=== PATIENT | male | born 1960 | race Caucasian/White ===

== ENCOUNTER 2016-12-29 09:18 | Day surgery (SDC) | payer OTHER ==
[~2016-12-29 09:18] MED LIST: ACCUTES; ALBU.5I NEB; ALPR0.25 PO; ASPI81CH CHEW; CHLO.12%30 SWISH-SPIT; FAMO20TA2 PO; GLUCINJ IM; HUMALOG SQ; LANTUS2P SQ; METO25TA3 PO; MIRA33504 PO; NORC5TAB PO; POTA-245 PO; QUET5TAB PO
--- NOTE | 2016-12-29 10:04 | RADRPT ---
EXAM DATE/TIME: 12/29/2016 00:00 [facility] COMPARISON: No previous studies available for comparison. INDICATIONS : Left pleural effusion. MEDICAL HISTORY : Hypertension. Hypercholesterolemia. SURGICAL HISTORY : CABG Pacemaker. Total knee replacement, right. Valve replacement. Hernia repair. ENCOUNTER: Initial ACUITY: 1 day PAIN SCORE: 8/10 LOCATION: Left chest FLUID: Total volume of 1000 cc of clear, yellow fluid was removed. Fluid was sent to lab for ordered studies. TECHNIQUE: 1. Ultrasound guidance for thoracentesis. 2. Thoracentesis. The risks, benefits, and alternatives to ultrasound guided thoracentesis were explained to the patien t in lay simple terms, including the risk of bleeding and infection. Written and verbal informed con sent was obtained. Appropriate area for thoracentesis was marked under ultrasound guidance with the patient in the uprig ht position. Overlying skin was prepped and draped in the usual sterile fashion and with local anest hetic, a dermatotomy was made with an 11 blade scalpel. A 6 Macedonian thoracentesis catheter was placed in the pleural space and fluid was removed. Catheter was then removed and a sterile dressing applie d. There were no immediate complications. The patient tolerated the procedure well and the left the ultrasound suite in stable condition. Chest radiograph is to be obtained. CONCLUSION: Uncomplicated ultrasound guided thoracentesis. Lance Griffith MD FACR on December 29, 2016 at 10:02 Board Certified Radiologist. This report was verified electronically.
--- NOTE | 2016-12-29 15:55 | RADRPT ---
EXAM DATE/TIME: 12/29/2016 08:59 [facility] COMPARISON: No previous studies available for comparison. INDICATIONS : Evaluate for pneumothorax. MEDICAL HISTORY : Myocardial infarction. SURGICAL HISTORY : CABG. Pacemaker. ENCOUNTER: Initial ACUITY: 3 days PAIN SCORE: 0/10 LOCATION: Bilateral chest FINDINGS: A single portable frontal view of the chest is limited by the portable nature of the exam in conjunct ion with the patient's body habitus. Heart is enlarged. Bilateral pleural effusions with bibasilar in filtrates. No discernible pneumothorax. Left-sided pacing device. Median sternotomy wires. CONCLUSION: 1. No appreciable pneumothorax. 2. Cardiomegaly with bilateral pleural effusions and bibasilar infiltrates. Garett Velasquez Jr., MD on December 29, 2016 at 9:32 Board Certified Radiologist. This report was verified electronically.
== END 2016-12-29 10:29 ==
LOC: HRAD 09:18
PROVIDERS: ATTEND Physical Medicine & Rehabilitation
DX: J90 Pleural effusion, not elsewhere classified (principal); I25.2 Old myocardial infarction; I51.7 Cardiomegaly; E78.00 Pure hypercholesterolemia, unspecified; I10 Essential (primary) hypertension; Z95.1 Presence of aortocoronary bypass graft; Z95.0 Presence of cardiac pacemaker; Z96.651 Presence of right artificial knee joint; Z95.2 Presence of prosthetic heart valve
CPT/HCPCS: 32555; 71010; C1729

== ENCOUNTER 2017-01-01 20:25 | Inpatient (IN) | payer OTHER ==
[~2017-01-01] VITALS: Ht 162.6 cm; Wt 160.9 kg
[2017-01-01] MEDS ORDERED: POTA20TA5 PO (22:19)
[2017-01-01] MEDS ORDERED: FERR325T PO (22:19)
[2017-01-01] MEDS ORDERED: METO25TA3 PO (22:19)
[2017-01-01] MEDS ORDERED: HYDR-3583 PO (22:19)
[2017-01-01] MEDS ORDERED: FURO40TA PO (22:19)
[2017-01-01] MEDS ORDERED: HEPA10003 SQ (22:19)
[2017-01-01] MEDS ORDERED: NOVOLOGP2 SQ (22:19)
[2017-01-01] MEDS ORDERED: SENN8.6T15 PO (22:19)
[2017-01-01] MEDS ORDERED: LEVEMIR SQ (22:19)
[2017-01-01] MEDS ORDERED: IPRASOL NEB (22:19)
[2017-01-01] MEDS ORDERED: QUET1TAB7 PO (22:19)
[2017-01-01] MEDS ORDERED: FAMO20TA2 PO (22:20)
[2017-01-01] MEDS ORDERED: ASPI81TA11 PO (22:20)
[2017-01-01] MEDS ORDERED: ALPR.5 PO (22:20)
[2017-01-01] MEDS ORDERED: VANC1000P IV (22:20)
[2017-01-02] VITALS (13 sets, daily range): BP systolic 112–152; BP diastolic 59–72; PULSE 83–102; RESP 20; TEMP 97.8–98.6; O2SAT 92–100
[2017-01-02] MEDS ORDERED: ONDANSETRON HCL 4 MG/2 ML VIAL IVP PRN (01:45)
[2017-01-02] MEDS ORDERED: ACETAMINOPHEN 325 MG TAB PO PRN (01:45)
[2017-01-02] MEDS ORDERED: CHLORHEXIDINE GLUCONATE 2 % 1 PACK (2 CLOTHS) TOP PRN (01:45)
[2017-01-02] MEDS ORDERED: SODIUM CHLORIDE 0.9% FLUSH 10 ML FLUSH IV FLUSH PRN (01:45)
[2017-01-02] MEDS ORDERED: MISCELLANEOUS NURSING INFORMATION XX SCH (01:45)
[2017-01-02] MEDS ORDERED: SENNOSIDES 8.6 MG TAB PO PRN (01:45)
[2017-01-02] MEDS ORDERED: NALOXONE HCL 0.4 MG/ML AMP IV PRN (01:45)
[2017-01-02] MEDS: CHLORHEXIDINE GLUCONATE 2 % 1 PACK (2 CLOTHS) TOP SCH (04:00)
[2017-01-02] MEDS: HEPARIN SODIUM - SQ 10,000 UNITS/ML VIAL SQ SCH ×3 (06:03→20:54)
[2017-01-02] MEDS ORDERED: DEXTROSE 50% IN WATER 50 ML VIAL(D50) IV PRN (07:00)
[2017-01-02] MEDS ORDERED: GLUCAGON 1 MG/ML VIAL OTHER PRN (07:00)
[2017-01-02] MEDS ORDERED: Vancomycin Consult Pharmacy 1 EA OTHER SCH (07:00)
[2017-01-02] MEDS: INSULIN ASPART SUPPLEMENTAL SCALE SQ SCH ×4 (07:34→20:58)
[2017-01-02] MEDS: guaiFENesin E.R. 600 MG TAB PO SCH ×2 (07:41→20:53)
[2017-01-02] MEDS: FAMOTIDINE 20 MG TAB PO SCH ×2 (07:41→20:53)
[2017-01-02] MEDS: FUROSEMIDE 40 MG TAB PO SCH ×3 (07:41→17:13)
[2017-01-02] MEDS: ASCORBIC ACID 500 MG TAB PO SCH ×2 (07:42→20:53)
[2017-01-02] MEDS: DOCUSATE SODIUM 100 MG CAP PO SCH ×2 (07:42→20:53)
[2017-01-02] MEDS: METOPROLOL TARTRATE 25 MG TAB PO SCH ×2 (07:42→20:54)
[2017-01-02] MEDS: SODIUM CHLORIDE 0.9% FLUSH 10 ML FLUSH IV FLUSH SCH ×2 (07:43→21:08)
[2017-01-02] MEDS ORDERED: ASPIRIN 325 MG TAB PO ONE (08:00)
[2017-01-02 11:03] LABS: BLOOD GAS BASE EXCESS 8.1 mmol/L (-2-2); BLOOD GAS CARBOXYHEMOGLOBIN 2.2 % (0-4); BLOOD GAS HCO3 33 mmol/L (22-26); BLOOD GAS METHEMOGLOBIN 1.1 % (0-2); BLOOD GAS O2 HGB SATURATION 94 % (90-100); BLOOD GAS OXYGEN CONTENT 10.4 Vol % (12.0-20.0); BLOOD GAS PCO2 51 mmHg (38-42); BLOOD GAS PO2 90 mmHg (61-120); BLOOD GAS TOTAL HGB 7.8 G/DL (12.0-16.0); TEMP CORR TO 98.6
[2017-01-02 11:04] LABS: CRITICAL VALUE YES; DRAW SITE LT BRACHIAL; LITER FLOW 3 L/M; NUMBER OF ARTERIAL PUNCTURES 2; OXYGEN DEVICE NASAL CANNULA; STAT NO; ULNAR PULSE PRESENT
[2017-01-02] MEDS: FERROUS SULFATE 325 MG (65 MG ELEMENTAL IRON) TAB PO SCH ×2 (12:15→17:13)
[2017-01-02 12:25] LABS: AUTOMATED NEUTROPHIL # 5.3 TH/MM3 (1.8-7.7); BASOPHIL % 0.4 % (0.0-2.0); EOSINOPHIL % 0.1 % (0.0-4.0); HEMATOCRIT 24.2 % (39.0-51.0); HEMO FLAGS DIFF FINAL; LYMPH % 12.9 % (9.0-44.0); LYMPHOCYTE # 0.9 TH/MM3 (1.0-4.8); MEAN CORPUSCULAR HEMOGLOBIN 27.5 PG (27.0-34.0); MEAN CORPUSCULAR HGB CONC 32.3 % (32.0-36.0); MONO % 8.3 % (0.0-8.0); NEUT % 78.3 % (16.0-70.0); PLATELET COUNT 307 TH/MM3 (150-450); RED BLOOD COUNT 2.85 MIL/MM3 (4.50-5.90); RED CELL DISTRIBUTION WIDTH 16.6 % (11.6-17.2); WHITE BLOOD COUNT 6.8 TH/MM3 (4.0-11.0)
[2017-01-02 12:42] LABS: POTASSIUM 3.9 MEQ/L (3.5-5.1)
[2017-01-02 12:43] LABS: MAGNESIUM 2.2 MG/DL (1.5-2.5)
[2017-01-02 12:47] LABS: ANION GAP 8 MEQ/L (5-15); AST (GOT) 19 U/L (15-37); BICARBONATE 34.4 MEQ/L (21.0-32.0); BLOOD UREA NITROGEN 27 MG/DL (7-18); CHLORIDE 95 MEQ/L (98-107); GLOMERULAR FILTRATION RATE 72 ML/MIN (>89); MAGNESIUM 2.2 MG/DL (1.5-2.5); POTASSIUM 3.9 MEQ/L (3.5-5.1); SODIUM (NA) 137 MEQ/L (136-145)
[2017-01-02 12:51] LABS: ALKALINE PHOSPHATASE 152 U/L (45-117); ALT (GPT) 18 U/L (12-78); TOTAL BILIRUBIN ADULT 0.3 MG/DL (0.2-1.0)
[2017-01-02] MEDS ORDERED: ASPIRIN EC 81 MG TABEC PO SCH (14:00)
[2017-01-02] MEDS ORDERED: ALPRAZolam 0.5 MG TAB PO PRN (14:00)
[2017-01-02] MEDS ORDERED: HEPARIN SODIUM SQ SCH (14:00)
[2017-01-02] MEDS: RESP: ALBUTEROL 2.5 MG/IPRATROPIUM 0.5 MG NEB (SCH) NEB ×2 (14:30→19:54)
--- NOTE | 2017-01-02 14:36 | HHI.HP ---
HPI Service [place] [facility] Primary Care Physician Unknown Admission Diagnosis Diagnoses: Chief Complaint: SOB Travel History International Travel<30 Days: No Contact w/Intl Traveler <30 Da: No Traveled to Known Affected Are: No History of Present Illness Written by Mary Blackowod PA-C acting as scribe for Dr. Day on 01/02/17 at 14:07. Patient is 48-year-old male with past medical history significant for hypertension, dyslipidemia, insulin-dependent diabetes, GERD with a history of Cao's esophagus, bipolar disorder, morbid obesity and obstructive sleep apnea using a CPAP machine at home who was initially admitted to [facility] and found to have infective endocarditis that was treated with IV antibiotics as well as aortic and mitral valve tissue replacement that was performed by Dr. Felix on 11/11/16. Postoperative consultations included asystole and patient required permanent pacemaker implantation. Patient was intubated and was unable to be weaned from the ventilator and was initially sent to [facility] [place] for vent weaning. Patient then returned to [facility] with a proximal sternal wound dehiscence and underwent sternal wound debridement as well as opening and drainage of pericardial fluid and a CT chest tube placement for bilateral pleural effusions. Patient was then readmitted to [facility] on 12/01/16 and was again able to be weaned successfully off of ventilator and placed on BiPAP at bedtime secondary to RUSSELL. Patient was then transferred to [place] on 12/23/16 for comprehensive rehabilitation and hospitalist services were consulted at that time medical management. While on the floor with rehabilitation, patient began refusing his BiPAP at night. Patient underwent a thoracentesis for left sided pleural effusion on 12/29/16 with exudative appearance of fluid analysis. On 01/01/17, patient was noted to be more confused with labored breathing. He was slightly tachycardiac. No fever or chills and patient was afebrile. Chest x-ray was obtained which revealed moderate left pleural effusion and left lower lobe consolidation versus atelectasis as well as cardiomegaly. Ultrasound guided thoracentesis was ordered but was deemed not necessary following CT results. ABG was ordered showing a pH of 7.34, PCO2 of 61 and PO2 of 86. Patient was placed on BiPAP without any significant improvement and repeat ABG. Settings were then increased with a repeat ABG showing reduction in CO2 however unable to keep patient in the rehabilitation unit due to increased BiPAP settings therefore patient was transferred to [place] ICU. Review of Systems Except as stated in HPI: all other systems reviewed are Neg Past Family Social History Past Medical History HTN HLD DM insulin-dependent GERD with history of Cao's esophagus Bipolar disorder Morbid obesity Obstructive sleep apnea Past Surgical History Right knee replacement Umbilical hernia repair Tonsillectomy Lens replacement Bilateral glaucoma surgery Reported Medications Quetiapine (Quetiapine Fumarate) 50 Mg Tab 50 Mg PO HS Miralax Powder (Polyethylene Glycol 3350 Powder) 17 Gm Powd 17 Gm PO DAILY Mix and dissolve one measuring cap-ful (17 grams) in water or juice. Metoprolol Tartrate 25 Mg Tab 12.5 Mg PO BID Lantus Inj (Insulin Glargine) 1,000 Unit/10 Ml Vial 15 Units SQ HS Klor-Con M20 (Potassium Chloride Microencaps) 20 Meq Tab 80 Meq PO DAILY Molt (Hydrocodone-Acetaminophen) 5-325 mg Tab 1 Tab PO Q6H PRN Accu-Chek Compact Plus (Glucose Blood) 1 Ashlie Ashlie 1 ACHS Humalog Inj (Insulin Human Lispro) 1,000 Unit/10 Ml Vial Units SQ ACHS Max dose at bedtime:( )units; sugars 150-200,(1)unit; sugars 201-250,(3)units; sugars 251-300,(5)units; sugars 301-350,(7)units; sugars 351-400 (9)units; If >400 call Glucagen Hypokit Inj Kit (Glucagon (Rdna) Inj Kit) 1 Mg Kit 1 IM ONCE PRN Famotidine 20 Mg Tab 20 Mg PO BID Chlorhexidine Gluconate (Mouth) Liq (Chlorhexidine Gluconate) 0.12% Soln 15 Ml SWISH-SPIT BID Aspirin 81 Mg Chew 81 Mg CHEW DAILY Alprazolam 0.25 Mg Tab 0.25 Mg PO Q8H PRN Albuterol Neb (Albuterol Sulfate) 2.5 Mg/0.5 Ml Neb 2.5 Mg NEB BID NEB Note: The Albuterol Sulfate Inhalation Solution is concentrated and must be diluted. Read complete instructions carefully before using. Allergies: Coded Allergies: Penicillin (Verified Allergy, Severe, Anaphylaxis, 12/23/16) *MDRO Multi-Drug Resistant Organism (Verified Adverse Reaction, Unknown, MRSA, 12/31/16) MRSA (blood) - 12/28/16 Active Ordered Medications Current Medications Medications (Trade) Dose Ordered Sig/Bladimir Route Start Time Stop Time Status Last Admin (NS Flush) 2 ml UNSCH PRN IV FLUSH 01/02/17 01:45 (NS Flush) 2 ml BID IV FLUSH 01/02/17 09:00 01/02/17 07:43 (Tylenol) 650 mg Q4H PRN PO 01/02/17 01:45 (Zofran Inj) 4 mg Q6H PRN IVP 01/02/17 01:45 (Senokot) 17.2 mg Q12H PRN PO 01/02/17 01:45 (Heparin Inj) 5,000 units Q8H SQ 01/02/17 06:00 01/02/17 12:17 (Narcan Inj) 0.4 mg UNSCH PRN IV 01/02/17 01:45 Miscellaneous Information 1 Q361D XX 01/02/17 01:45 (Chlorhexidine 2% Cloth) 3 pack Taper DAILY@04 TOP 01/02/17 04:00 12/29/17 03:59 01/02/17 04:00 (Chlorhexidine 2% Cloth) 3 pack UNSCH PRN TOP 01/02/17 01:45 (Pneumovax-23 Inj) 25 mcg ONCE ONCE IM 01/03/17 10:00 01/03/17 10:01 (Levemir Inj) 40 units HS SQ 01/02/17 21:00 (Lasix) 40 mg TID PO 01/02/17 09:00 01/02/17 17:13 (KCl) 40 meq Q12HR PO 01/02/17 09:00 01/02/17 17:13 (SEROquel) 25 mg HS PO 01/02/17 21:00 (Colace) 100 mg BID PO 01/02/17 09:00 (Pepcid) 20 mg BID PO 01/02/17 09:00 01/02/17 07:41 (Lopressor) 25 mg Q12HR PO 01/02/17 09:00 01/02/17 07:42 Ferrous Sulfate 325 mg 325 mg BID@12,17 PO 01/02/17 12:00 01/02/17 17:13 (Vancomycin Consult Pharmacy) 0 ml @ 0 mls/hr UNSCH OTHER 01/02/17 07:00 (Mucinex Er) 1,200 mg BID PO 01/02/17 09:00 01/02/17 07:41 (Vitamin C) 500 mg BID PO 01/02/17 09:00 01/02/17 07:42 (D50w (Vial) Inj) 50 ml UNSCH PRN IV 01/02/17 07:00 (Glucagon Inj) 1 mg UNSCH PRN OTHER 01/02/17 07:00 (Xanax) 0.5 mg Q8H PRN PO 01/02/17 14:00 01/02/17 17:13 (Molt 10-325 Mg) 1 tab Q4H PRN PO 01/02/17 15:00 01/02/17 16:19 (NovoLOG INJ) 5 units TIDAC SQ 01/02/17 17:00 01/02/17 17:00 Family History Father Heart disease and diabetes Mother smoker, with lung cancer Social History Reports daily alcohol use beer and spirits less than 6 day Cigar once a month Marijuana use in college 30 years ago Physical Exam Vital Signs Vital Signs Date Time Temp Pulse Resp B/P Pulse Ox O2 Delivery O2 Flow Rate FiO2 01/02/17 07:15 98 Nasal Cannula 3.00 01/02/17 04:00 93 30 01/02/17 04:00 97.9 86 137/62 94 01/02/17 04:00 86 01/02/17 02:00 97.8 88 137/66 92 01/02/17 02:00 88 01/02/17 00:30 95 30 Physical Exam GENERAL: This is a well-nourished, well-developed obese patient, in no apparent distress. Awake and alert. SKIN: No rashes, ecchymoses or lesions. Cool and dry. HEAD: Atraumatic. Normocephalic. No temporal or scalp tenderness. EYES: Pupils equal round and reactive. Extraocular motions intact. No scleral icterus. No injection or drainage. ENT: Nose without bleeding, purulent drainage or septal hematoma. Throat without erythema, tonsillar hypertrophy or exudate. Uvula midline. Airway patent. NECK: Trachea midline. No JVD or lymphadenopathy. Supple, nontender, no meningeal signs. CARDIOVASCULAR: Regular rate and rhythm without murmurs, gallops, or rubs. RESPIRATORY: Clear to auscultation. Breath sounds equal bilaterally. No wheezes , rales, or rhonchi. GASTROINTESTINAL: Protruberant abdomen, soft, non-tender, nondistended. No hepato-splenomegaly, or palpable masses. No guarding. MUSCULOSKELETAL: Extremities without clubbing, cyanosis, or edema. No joint tenderness, effusion, or edema noted. No calf tenderness. NEUROLOGICAL: Awake and alert. Able to move all extremities. No focal neurologic deficit appreciated. Normal speech. Laboratory Laboratory Tests Test 01/02/17 01/02/17 01/02/17 00:45 10:56 12:15 Nasal Screen MRSA (PCR) MRSA DETECTED Blood Gas Puncture Site LT BRACHIAL Blood Gas Patient Temperature 98.6 Blood Gas HCO3 33 Blood Gas Base Excess 8.1 Blood Gas Oxygen Saturation 94 Arterial Blood pH 7.42 Arterial Blood Partial 51 Pressure CO2 Arterial Blood Partial 90 Pressure O2 Arterial Blood Oxygen Content 10.4 Arterial Blood 2.2 Carboxyhemoglobin Arterial Blood Methemoglobin 1.1 Blood Gas Hemoglobin 7.8 Oxygen Delivery Device NASAL CANNULA Blood Gas Liter Flow 3 White Blood Count 6.8 Red Blood Count 2.85 Hemoglobin 7.8 Hematocrit 24.2 Mean Corpuscular Volume 85.0 Mean Corpuscular Hemoglobin 27.5 Mean Corpuscular Hemoglobin 32.3 Concent Red Cell Distribution Width 16.6 Platelet Count 307 Mean Platelet Volume 6.9 Neutrophils (%) (Auto) 78.3 Lymphocytes (%) (Auto) 12.9 Monocytes (%) (Auto) 8.3 Eosinophils (%) (Auto) 0.1 Basophils (%) (Auto) 0.4 Neutrophils # (Auto) 5.3 Lymphocytes # (Auto) 0.9 Monocytes # (Auto) 0.6 Eosinophils # (Auto) 0.0 Basophils # (Auto) 0.0 CBC Comment DIFF FINAL Differential Comment Sodium Level 137 Potassium Level 3.9 Chloride Level 95 Carbon Dioxide Level 34.4 Anion Gap 8 Blood Urea Nitrogen 27 Creatinine 1.06 Estimat Glomerular Filtration 72 Rate Random Glucose 314 Calcium Level 9.0 Phosphorus Level 3.7 Magnesium Level 2.2 Total Bilirubin 0.3 Aspartate Amino Transf 19 (AST/SGOT) Alanine Aminotransferase 18 (ALT/SGPT) Alkaline Phosphatase 152 Total Protein 8.5 Albumin 1.8 Result Diagram: 01/03/1752201/03/17522 Assessment and Plan Assessment and Plan 56 yo with morbid obesity, h/o RUSSELL on home CPAP, HTN, DM and recent infective endocarditis s/p aortic and mitral valve replacements, MRSA bacteremia on IV Vancomycin and left sided thoracentesis for pleural effusion who is being transferred from [facility] to [place] ICU for suspected CO2 narcosis and acute hypercapnic respiratory failure. Acute hypercapnic respiratory failure in morbidly obese patient with history of RUSSELL - possibly secondary to cardiac asthma - patient does not appear to be in any distress at this time - ABG this am shows pH 7.42, pCO2 51, pO2 90 - O2 sats 98% on 3L - Continue nightly BiPAP - Tapering dose of steroids - History of infective endocarditis Status post aortic and mitral valve tissue replacement PPM insertion MRSA bacteremia H/O left pleural effusion s/p thoracentesis 12/29/16 with recent CXR showing mild to moderate left sided effusion but deemed to small for repeat IR procedure - Continue on IV vancomycin - Continue diuresis with IV Lasix - Duonebs ordered Diabetes mellitus insulin-dependent - On Humulin at home - Levemir 40 units subcutaneous daily at bedtime, insulin sliding scale - Monitor blood glucose, will adjust to prandial insulin - Monitor for hypoglycemia HTN, controlled - Resume antihypertensive meds - Monitor BP trend Anemia, normocytic normochromic - iron studies indicative of GENO, on po supplementation - recent hemoccult negative - appears stable - Trend CBC Anxiety, depression - Continue with Xanax when necessary DVT prop heparin Physician Certification 2 Midnight Certification Type: Admission for Inpatient Services Order for Inpatient Services The services are ordered in accordance with Medicare regulations or non- Medicare payer requirements, as applicable. In the case of services not specified as inpatient-only, they are appropriately provided as inpatient services in accordance with the 2-midnight benchmark. Estimated LOS (days): 2 days is the estimated time the patient will need to remain in the hospital, assuming treatment plan goals are met and no additional complications. Post-Hospital Plan: SNF Attending Statement This note was transcribed by scribbeba [Mary Blackwood PA-C). I, Dr. Sherman Daymus personally performed the history, physical exam, and medical decision making; and confirmed the accuracy of the information in the transcribed note. Authenticated by Dr. Sherman Bejarano on 01/02/17 at 14:45. Mary Blackwood January 02, 2017 14:36 Sherman Greenberg MD January 03, 2017 17:37 Sherman Greenberg MD January 03, 2017 17:37
[2017-01-02] MEDS: ACETAMINOPHEN/HYDROcodone 325 MG/10 MG TAB PO PRN ×2 (16:19→20:54)
[2017-01-02] MEDS: INSULIN ASPART 1,000 UNITS/10 ML VIAL SQ SCH (17:00)
[2017-01-02] MEDS: ALPRAZolam 0.5 MG TAB PO PRN (17:13)
[2017-01-02] MEDS: POTASSIUM CHLORIDE 20 MEQ CONTROLLED RELEASE TAB PO SCH ×2 (17:13→20:53)
--- NOTE | 2017-01-02 19:51 | PD.CONS ---
HPI Service Cardiology Consult Requested By DR. Day. Reason for Consult Cardiac arrhythmia with pacemaker. Primary Care Physician Unknown History of Present Illness Patient is 48-year-old man, known to me from recent hospitalization in October 2016 at [facility] when he was diagnosed severe and infectious endocarditis, then transferred to [facility] was treated with IV antibiotics as well as aortic and mitral valve tissue replacement that was performed by Dr. Alfaro on 11/11/16. Postoperative complications included asystole and patient required permanent pacemaker implantation. Patient was intubated and was unable to be weaned from the ventilator and was initially sent to [facility] [place] for vent weaning. Patient then returned to [facility] with a proximal sternal wound dehiscence and underwent sternal wound debridement as well as opening and drainage of pericardial fluid and a CT chest tube placement for bilateral pleural effusions. Patient was then readmitted to [facility] on 12/01/16 and was again able to be weaned successfully off of ventilator and placed on BiPAP at bedtime secondary to RUSSELL. Patient was then transferred to [place] on 12/23/16 for comprehensive rehabilitation and hospitalist services were consulted at that time medical management. While on the floor with rehabilitation, patient began refusing his BiPAP at night. Patient underwent a thoracentesis for left sided pleural effusion on 12/29/16 with exudative appearance of fluid analysis. On 01/01/17, patient was noted to be more confused with labored breathing. He was slightly tachycardiac. No fever or chills and patient was afebrile. Chest x-ray was obtained which revealed moderate left pleural effusion and left lower lobe consolidation versus atelectasis as well as cardiomegaly. Ultrasound guided thoracentesis was ordered but was deemed not necessary following CT results. ABG was ordered showing a pH of 7.34, PCO2 of 61 and PO2 of 86. Patient was placed on BiPAP without any significant improvement and repeat ABG. Settings were then increased with a repeat ABG showing reduction in CO2 however unable to keep patient in the rehabilitation unit due to increased BiPAP settings therefore patient was transferred to [place] ICU. Other PMHx includes not limited to hypertension, dyslipidemia, insulin- dependent diabetes, GERD with a history of Cao's esophagus, bipolar disorder , morbid obesity and obstructive sleep apnea using a CPAP machine at home. Review of Systems Consitutional: COMPLAINS OF: Fatigue Respiratory: COMPLAINS OF: See HPI Cardiovascular: COMPLAINS OF: See HPI Musculoskeletal: COMPLAINS OF: Joint pain Psychiatric: COMPLAINS OF: Anxiety, Depression, Sleep disturbances Endocrine: COMPLAINS OF: Weight gain Past Family Social History Allergies: Coded Allergies: Penicillin (Verified Allergy, Severe, Anaphylaxis, 12/23/16) *MDRO Multi-Drug Resistant Organism (Verified Adverse Reaction, Unknown, MRSA, 12/31/16) MRSA (blood) - 12/28/16 Past Medical History HTN HLD DM insulin-dependent GERD with history of Cao's esophagus Bipolar disorder Morbid obesity Obstructive sleep apnea Past Surgical History AVR and MVR 11/2016 Right knee replacement Umbilical hernia repair Tonsillectomy Lens replacement Bilateral glaucoma surgery Reported Medications Reported Meds & Active Scripts Active Vancomycin Inj (Vancomycin HCl) 1,000 Mg Inj 2,250 Mg IV Q12HR 1 Days Xanax (Alprazolam) 0.5 Mg Tab 0.5 Mg PO Q6H PRN Aspirin EC (Aspirin) 81 Mg Tabdr 81 Mg PO DAILY 30 Days Famotidine 20 Mg Tab 20 Mg PO BID 30 Days Ferrous Sulfate 325 Mg Tab 325 Mg PO BID 30 Days Furosemide 40 Mg Tab 40 Mg PO TID 30 Days Heparin Sodium (Heparin Sodium (Porcine)) 10,000 Unit/Ml Inj 5,000 Units SQ Q8HR 30 Days Hydrocodone-Acetaminophen 10-325 mg Tab 1 Tab PO Q4H PRN Novolog Inj (Insulin Aspart) 1,000 Unit/10 Ml Vial 5 Units SQ TIDAC 30 Days Levemir Inj (Insulin Detemir) 1,000 unit/ 10 ML Vial 40 Units SQ HS 30 Days Duoneb (Ipratropium-Albuterol Neb) 0.5-2.5 Mg/3 Ml Neb 1 Ampule NEB Q4HR WHILE AWAKE NEB 30 Days Metoprolol Tartrate 25 Mg Tab 25 Mg PO Q12HR 30 Days Potassium Chloride Microencaps 20 Meq Tab 40 Meq PO Q12HR 30 Days Senna Lax (Sennosides) 8.6 Mg Tab 17.2 Mg PO DAILY 30 Days Quetiapine (Quetiapine Fumarate) 25 Mg Tab 25 Mg PO HS 30 Days Active Ordered Medications Current Medications Medications (Trade) Dose Ordered Sig/Bladimir Route Start Time Stop Time Status Last Admin (NS Flush) 2 ml UNSCH PRN IV FLUSH 01/02/17 01:45 (NS Flush) 2 ml BID IV FLUSH 01/02/17 09:00 01/02/17 07:43 (Tylenol) 650 mg Q4H PRN PO 01/02/17 01:45 (Zofran Inj) 4 mg Q6H PRN IVP 01/02/17 01:45 (Senokot) 17.2 mg Q12H PRN PO 01/02/17 01:45 (Heparin Inj) 5,000 units Q8H SQ 01/02/17 06:00 01/02/17 12:17 (Narcan Inj) 0.4 mg UNSCH PRN IV 01/02/17 01:45 Miscellaneous Information 1 Q361D XX 01/02/17 01:45 (Chlorhexidine 2% Cloth) 3 pack Taper DAILY@04 TOP 01/02/17 04:00 12/29/17 03:59 01/02/17 04:00 (Chlorhexidine 2% Cloth) 3 pack UNSCH PRN TOP 01/02/17 01:45 (Pneumovax-23 Inj) 25 mcg ONCE ONCE IM 01/03/17 10:00 01/03/17 10:01 (Levemir Inj) 40 units HS SQ 01/02/17 21:00 (Lasix) 40 mg TID PO 01/02/17 09:00 01/02/17 17:13 (KCl) 40 meq Q12HR PO 01/02/17 09:00 01/02/17 17:13 (SEROquel) 25 mg HS PO 01/02/17 21:00 (Colace) 100 mg BID PO 01/02/17 09:00 (Pepcid) 20 mg BID PO 01/02/17 09:00 01/02/17 07:41 (Lopressor) 25 mg Q12HR PO 01/02/17 09:00 01/02/17 07:42 Ferrous Sulfate 325 mg 325 mg BID@, PO 01/02/17 12:00 01/02/17 17:13 (Vancomycin Consult Pharmacy) 0 ml @ 0 mls/hr UNSCH OTHER 01/02/17 07:00 (Mucinex Er) 1,200 mg BID PO 01/02/17 09:00 01/02/17 07:41 (Vitamin C) 500 mg BID PO 01/02/17 09:00 01/02/17 07:42 (D50w (Vial) Inj) 50 ml UNSCH PRN IV 01/02/17 07:00 (Glucagon Inj) 1 mg UNSCH PRN OTHER 01/02/17 07:00 (Xanax) 0.5 mg Q8H PRN PO 01/02/17 14:00 01/02/17 17:13 ([place] 10-325 Mg) 1 tab Q4H PRN PO 01/02/17 15:00 01/02/17 16:19 (NovoLOG INJ) 5 units TIDAC SQ 01/02/17 17:00 01/02/17 17:00 Family History Father Heart disease and diabetes Mother smoker, with lung cancer Social History Reports daily alcohol use beer and spirits less than 6 day Cigar once a month Marijuana use in college 30 years ago Physical Exam Vital Signs Vital Signs Date Time Temp Pulse Resp B/P Pulse Ox O2 Delivery O2 Flow Rate FiO2 01/02/17 18:00 95 01/02/17 16:00 98.4 102 126/59 98 01/02/17 16:00 102 01/02/17 14:00 86 01/02/17 12:00 83 01/02/17 12:00 98.6 94 148/64 95 01/02/17 10:00 102 01/02/17 08:00 97.9 84 20 114/62 96 01/02/17 08:00 90 01/02/17 07:15 98 Nasal Cannula 3.00 01/02/17 04:00 93 30 01/02/17 04:00 97.9 86 137/62 94 01/02/17 04:00 86 01/02/17 02:00 97.8 88 137/66 92 01/02/17 02:00 88 01/02/17 00:30 95 30 Physical Exam GENERAL: obese patient, in no apparent distress. Awake and alert. SKIN: No rashes, ecchymoses or lesions. Cool and dry. HEAD: Atraumatic. Normocephalic. No temporal or scalp tenderness. EYES: Pupils equal round and reactive. Extraocular motions intact. No scleral icterus. No injection or drainage. ENT: Nose without bleeding,Airway patent. NECK: Trachea midline. No JVD or lymphadenopathy. Supple, nontender, CARDIOVASCULAR: Regular rate and rhythm without murmurs, gallops, or rubs. RESPIRATORY: Clear but diminished to auscultation. Breath sounds equal bilaterally. No wheezes, rales, or rhonchi. GASTROINTESTINAL: Protruberant abdomen, soft, non-tender, nondistended. No hepato-splenomegaly, or palpable masses. No guarding. MUSCULOSKELETAL: No edema. No calf tenderness. NEUROLOGICAL: Awake and alert. Able to move all extremities. No focal neurologic deficit appreciated. Normal speech Laboratory Laboratory Tests Test 01/02/17 01/02/17 01/02/17 00:45 10:56 12:15 Nasal Screen MRSA (PCR) MRSA DETECTED Blood Gas Puncture Site LT BRACHIAL Blood Gas Patient Temperature 98.6 Blood Gas HCO3 33 Blood Gas Base Excess 8.1 Blood Gas Oxygen Saturation 94 Arterial Blood pH 7.42 Arterial Blood Partial 51 Pressure CO2 Arterial Blood Partial 90 Pressure O2 Arterial Blood Oxygen Content 10.4 Arterial Blood 2.2 Carboxyhemoglobin Arterial Blood Methemoglobin 1.1 Blood Gas Hemoglobin 7.8 Oxygen Delivery Device NASAL CANNULA Blood Gas Liter Flow 3 White Blood Count 6.8 Red Blood Count 2.85 Hemoglobin 7.8 Hematocrit 24.2 Mean Corpuscular Volume 85.0 Mean Corpuscular Hemoglobin 27.5 Mean Corpuscular Hemoglobin 32.3 Concent Red Cell Distribution Width 16.6 Platelet Count 307 Mean Platelet Volume 6.9 Neutrophils (%) (Auto) 78.3 Lymphocytes (%) (Auto) 12.9 Monocytes (%) (Auto) 8.3 Eosinophils (%) (Auto) 0.1 Basophils (%) (Auto) 0.4 Neutrophils # (Auto) 5.3 Lymphocytes # (Auto) 0.9 Monocytes # (Auto) 0.6 Eosinophils # (Auto) 0.0 Basophils # (Auto) 0.0 CBC Comment DIFF FINAL Differential Comment Sodium Level 137 Potassium Level 3.9 Chloride Level 95 Carbon Dioxide Level 34.4 Anion Gap 8 Blood Urea Nitrogen 27 Creatinine 1.06 Estimat Glomerular Filtration 72 Rate Random Glucose 314 Calcium Level 9.0 Phosphorus Level 3.7 Magnesium Level 2.2 Total Bilirubin 0.3 Aspartate Amino Transf 19 (AST/SGOT) Alanine Aminotransferase 18 (ALT/SGPT) Alkaline Phosphatase 152 Total Protein 8.5 Albumin 1.8 Result Diagram: 01/02/17 1215 01/02/17 1215 Assessment and Plan Problem List: (1) S/P aortic valve and mitral valve replacement (2) Impaired mobility and activities of daily living (3) Hx of respiratory failure (4) Sternal wound dehiscence (5) RUSSELL (obstructive sleep apnea) (6) DM (diabetes mellitus) (7) Hypertension (8) Infective endocarditis (9) Cao esophagus Assessment and Plan 1. Acute hypercapnic respiratory failure in morbidly obese patient with history of RUSSELL. 2. History of infective endocarditis, Status post aortic and mitral valve tissue replacement. Stable 3 PPM insertion for SSS. Stable 4. MRSA bacteremia. ON IV abx. No clinical sign suggestive of recurrent endocarditis. Consider repeat Echo if necessary. 5. H/O left pleural effusion s/p thoracentesis 12/29/16 with recent CXR showing mild to moderate left sided effusion but deemed to small for repeat IR procedure. Continue diuresis with IV Lasix 6.Diabetes mellitus insulin-dependent 7. HTN, controlled, Resume antihypertensive meds 8. Anemia, normocytic normochromic ,stable 9. Anxiety, depression,Continue with Xanax when necessary Wing Kimber Duke MD January 02, 2017 19:51
[2017-01-02] MEDS ORDERED: FAMOTIDINE 20 MG TAB PO SCH (21:00)
[2017-01-02] MEDS: INSULIN DETEMIR 100 UNITS/ML VIAL SQ SCH (21:00)
[2017-01-02] MEDS ORDERED: INSULIN DETEMIR 100 UNITS/ML VIAL SQ SCH (21:00)
[2017-01-02] MEDS: QUEtiapine FUMARATE 25 MG TAB PO SCH (21:05)
[2017-01-03] VITALS (26 sets, daily range): BP systolic 111–137; BP diastolic 61–79; PULSE 76–100; RESP 20–24; TEMP 97.8–98.4; O2SAT 98–100
[2017-01-03] MEDS: CHLORHEXIDINE GLUCONATE 2 % 1 PACK (2 CLOTHS) TOP SCH (04:00)
[2017-01-03 06:49] LABS: AUTOMATED NEUTROPHIL # 4.9 TH/MM3 (1.8-7.7); BASOPHIL # 0.1 TH/MM3 (0-0.2); BASOPHIL % 0.9 % (0.0-2.0); EOSINOPHIL # 0.1 TH/MM3 (0-0.4); EOSINOPHIL % 0.6 % (0.0-4.0); HEMATOCRIT 25.2 % (39.0-51.0); LYMPH % 31.7 % (9.0-44.0); LYMPHOCYTE # 2.7 TH/MM3 (1.0-4.8); MEAN CORPUSCULAR HEMOGLOBIN 26.4 PG (27.0-34.0); MEAN CORPUSCULAR HGB CONC 31.1 % (32.0-36.0); NEUT % 58.8 % (16.0-70.0); PLATELET COUNT 272 TH/MM3 (150-450); RED BLOOD COUNT 2.96 MIL/MM3 (4.50-5.90); RED CELL DISTRIBUTION WIDTH 16.9 % (11.6-17.2); WHITE BLOOD COUNT 8.4 TH/MM3 (4.0-11.0)
[2017-01-03 07:00] LABS: ALKALINE PHOSPHATASE 147 U/L (45-117); ALT (GPT) 20 U/L (12-78); ANION GAP 11 MEQ/L (5-15); AST (GOT) 32 U/L (15-37); BICARBONATE 32.5 MEQ/L (21.0-32.0); BLOOD UREA NITROGEN 31 MG/DL (7-18); CHLORIDE 96 MEQ/L (98-107); GLOMERULAR FILTRATION RATE 90 ML/MIN (>89); POTASSIUM 4.5 MEQ/L (3.5-5.1); SODIUM (NA) 139 MEQ/L (136-145); TOTAL BILIRUBIN ADULT 0.3 MG/DL (0.2-1.0)
[2017-01-03] MEDS: INSULIN ASPART SUPPLEMENTAL SCALE SQ SCH ×4 (07:00→19:49)
[2017-01-03 07:11] LABS: HEMO FLAGS AUTO DIFF
[2017-01-03 07:12] LABS: PLATELET ESTIMATE SMEAR NORMAL (NORMAL); PLATELET MORPHOLOGY NORMAL (NORMAL); SCAN/DIFF AUTO DIFF CONFIRMED
[2017-01-03] MEDS: HEPARIN SODIUM - SQ 10,000 UNITS/ML VIAL SQ SCH ×3 (07:20→22:00)
[2017-01-03] MEDS: ACETAMINOPHEN/HYDROcodone 325 MG/10 MG TAB PO PRN ×4 (07:21→19:41)
[2017-01-03] MEDS: RESP: ALBUTEROL 2.5 MG/IPRATROPIUM 0.5 MG NEB (SCH) NEB ×4 (07:30→20:23)
[2017-01-03] MEDS ORDERED: SENNOSIDES 17.2 MG PO SCH (09:00)
[2017-01-03] MEDS ORDERED: POTASSIUM CHLORIDE 20 MEQ CONTROLLED RELEASE TAB PO SCH (09:00)
[2017-01-03] MEDS: DOCUSATE SODIUM 100 MG CAP PO SCH ×2 (09:21→19:41)
[2017-01-03] MEDS: FUROSEMIDE 40 MG TAB PO SCH ×3 (09:21→16:50)
[2017-01-03] MEDS: ASCORBIC ACID 500 MG TAB PO SCH ×2 (09:22→19:41)
[2017-01-03] MEDS: METOPROLOL TARTRATE 25 MG TAB PO SCH ×2 (09:22→19:42)
[2017-01-03] MEDS: guaiFENesin E.R. 600 MG TAB PO SCH ×2 (09:22→19:42)
[2017-01-03] MEDS: POTASSIUM CHLORIDE 20 MEQ CONTROLLED RELEASE TAB PO SCH ×2 (09:22→19:47)
[2017-01-03] MEDS: FAMOTIDINE 20 MG TAB PO SCH ×2 (09:22→19:41)
[2017-01-03] MEDS: INSULIN ASPART 1,000 UNITS/10 ML VIAL SQ SCH ×3 (09:22→16:50)
[2017-01-03] MEDS: SODIUM CHLORIDE 0.9% FLUSH 10 ML FLUSH IV FLUSH SCH ×2 (09:24→21:00)
[2017-01-03] MEDS ORDERED: PNEUMOCOCCAL POLYVALENT INJ 25 MCG/0.5 ML SYR IM ONE (10:00)
--- NOTE | 2017-01-03 11:32 | RADRPT ---
EXAM DATE/TIME: 01/03/2017 10:53 [place] COMPARISON: CT THORAX W/O CONTRAST, January 01, 2017, 16:54. CHEST PA & LAT, January 01, 2017, 10:37. INDICATIONS : Evaluate for pleural effusion; shortness of breath and chest pain since CABG. MEDICAL HISTORY : Chronic obstructive pulmonary disease. Congestive heart failure. SURGICAL HISTORY : CABG. Pacemaker. Aortic and mitral valve replaced. ENCOUNTER: Subsequent ACUITY: 2 months PAIN SCORE: 6/10 LOCATION: Bilateral chest FINDINGS: Pacemaker device is noted with control pack over the left chest. There is hazy density over the lung bases bilaterally, likely atelectasis or infiltrate and layering effusion. There is diffuse vascular congestion and cardiomegaly. Sternotomy wires are present. CONCLUSION: Probable CHF Hal Burton MD on January 03, 2017 at 11:30 Board Certified Radiologist. This report was verified electronically.
[2017-01-03] MEDS: FERROUS SULFATE 325 MG (65 MG ELEMENTAL IRON) TAB PO SCH ×2 (11:56→16:50)
[2017-01-03] MEDS ORDERED: VANCOMYCIN INJ 1,500 MG in SODIUM CHLORID 0.9% 500 ML INJ 500 ML IV ONE (13:00)
--- NOTE | 2017-01-03 13:38 | HHI.IDPN ---
Note Infectious Disease Note Patient known to me from [facility]. Transferred to [facility] for hypercarbic respiratory failure. Now on O2 via nasal canula. Was on BIPAP last night. Afebrile. Feels okay. Just finished eating. Blood cultures negative x 4 days. Nasal MRSA positive. Patient was transferred to rehab facility after cardiac surgery. The patient initially was found to have mitral and aortic valve stenosis and required mitral and aortic valve replacement. PAST MEDICAL HISTORY 1. Hypertension. 2. Hyperlipidemia. 3. Diabetes mellitus, insulin dependent. 4. Gastroesophageal reflux disease. 5. Cao's esophagus. 6. Neuropathy. 7. Gout. 8. Bipolar disorder. 9. Obstructive sleep apnea. 10. Right knee replacement. 11. Umbilical hernia repair. 12. Tonsillectomy. 13. Cataract lens replacement. 14. Surgery for glaucoma. ALLERGIES PENICILLIN. ANTIBIOTICS: Vancomycin. OBJECTIVE: Vital Signs Date Time Temp Pulse Resp B/P Pulse Ox O2 Delivery O2 Flow Rate FiO2 01/03/17 10:00 96 01/03/17 09:00 100 01/03/17 08:00 98.2 92 20 137/77 99 01/03/17 08:00 92 01/03/17 07:31 100 Nasal Cannula 2.00 01/03/17 06:00 83 01/03/17 04:00 80 01/03/17 04:00 98.2 80 128/73 100 01/03/17 03:44 100 30 01/03/17 03:00 81 124/79 100 01/03/17 02:00 77 01/03/17 02:00 78 116/72 100 01/03/17 02:00 78 01/03/17 01:45 78 01/03/17 01:30 77 01/03/17 01:15 76 01/03/17 01:00 76 01/03/17 01:00 76 01/03/17 01:00 76 111/67 99 01/03/17 00:45 77 01/03/17 00:30 77 01/03/17 00:15 76 01/03/17 00:00 98.4 77 116/61 99 01/03/17 00:00 77 116/61 99 01/03/17 00:00 77 01/03/17 00:00 77 01/03/17 00:00 77 01/02/17 22:00 85 01/02/17 22:00 99 30 01/02/17 20:00 96 01/02/17 20:00 98.2 96 118/68 98 01/02/17 19:56 100 Nasal Cannula 2.00 01/02/17 18:00 95 01/02/17 16:00 98.4 102 126/59 98 01/02/17 16:00 102 01/02/17 14:00 86 01/02/17 01/02/17 01/03/17 15:00 23:00 07:00 Intake Total 720 ml 240 ml 0 ml Output Total 600 ml Balance 120 ml 240 ml 0 ml Intake Oral 720 ml 240 ml 0 ml IV Total 0 ml Output Urine Total 600 ml # Voids 2 2 # Bowel Movements 0 0 0 Laboratory Tests Test 01/02/17 01/03/17 12:15 05:23 White Blood Count 6.8 TH/MM3 8.4 TH/MM3 Red Blood Count 2.85 MIL/MM3 2.96 MIL/MM3 Hemoglobin 7.8 GM/DL 7.8 GM/DL Hematocrit 24.2 % 25.2 % Mean Corpuscular Volume 85.0 FL 85.0 FL Mean Corpuscular Hemoglobin 27.5 PG 26.4 PG Mean Corpuscular Hemoglobin 32.3 % 31.1 % Concent Red Cell Distribution Width 16.6 % 16.9 % Platelet Count 307 TH/MM3 272 TH/MM3 Mean Platelet Volume 6.9 FL 7.5 FL Neutrophils (%) (Auto) 78.3 % 58.8 % Lymphocytes (%) (Auto) 12.9 % 31.7 % Monocytes (%) (Auto) 8.3 % 8.0 % Eosinophils (%) (Auto) 0.1 % 0.6 % Basophils (%) (Auto) 0.4 % 0.9 % Neutrophils # (Auto) 5.3 TH/MM3 4.9 TH/MM3 Lymphocytes # (Auto) 0.9 TH/MM3 2.7 TH/MM3 Monocytes # (Auto) 0.6 TH/MM3 0.7 TH/MM3 Eosinophils # (Auto) 0.0 TH/MM3 0.1 TH/MM3 Basophils # (Auto) 0.0 TH/MM3 0.1 TH/MM3 CBC Comment DIFF FINAL AUTO DIFF Differential Comment AUTO DIFF CONFIRMED Platelet Estimate NORMAL Platelet Morphology Comment NORMAL Laboratory Tests Test 01/02/17 01/03/17 12:15 05:23 Sodium Level 137 MEQ/L 139 MEQ/L Potassium Level 3.9 MEQ/L 4.5 MEQ/L Chloride Level 95 MEQ/L 96 MEQ/L Carbon Dioxide Level 34.4 MEQ/L 32.5 MEQ/L Anion Gap 8 MEQ/L 11 MEQ/L Blood Urea Nitrogen 27 MG/DL 31 MG/DL Creatinine 1.06 MG/DL 0.87 MG/DL Estimat Glomerular Filtration 72 ML/MIN 90 ML/MIN Rate Random Glucose 314 MG/DL 123 MG/DL Calcium Level 9.0 MG/DL 8.7 MG/DL Phosphorus Level 3.7 MG/DL Magnesium Level 2.2 MG/DL Total Bilirubin 0.3 MG/DL 0.3 MG/DL Aspartate Amino Transf 19 U/L 32 U/L (AST/SGOT) Alanine Aminotransferase 18 U/L 20 U/L (ALT/SGPT) Alkaline Phosphatase 152 U/L 147 U/L Total Protein 8.5 GM/DL 7.9 GM/DL Albumin 1.8 GM/DL 2.1 GM/DL Microbiology Date/Time Procedure Status Source Growth 12/28/16 19:24 Aerobic Blood Culture - Preliminary Resulted Blood Other NO GROWTH IN 3 DAYS 12/28/16 19:24 Anaerobic Blood Culture - Final Resulted Blood Other QNS - SEE AEROBE REPORT 12/28/16 22:26 Aerobic Blood Culture - Preliminary Resulted Blood Other S. Aureus Mrsa 12/28/16 22:26 Anaerobic Blood Culture - Final Resulted Blood Other QNS - SEE AEROBE REPORT 12/29/16 08:40 Gram Stain - Final Resulted Fluid Pleural Fluid 12/29/16 08:40 Body Fluid Culture - Preliminary Resulted Fluid Pleural Fluid NO GROWTH IN 48 HOURS. 12/29/16 08:40 Acid Fast Stain - Final Resulted Fluid Pleural Fluid NO ACID FAST BACILLI SEEN 12/29/16 08:40 Mycobacterial Culture Resulted Fluid Pleural Fluid Pending 12/29/16 08:40 Fungal Smear - Final Resulted Fluid Pleural Fluid NO FUNGAL ELEMENTS SEEN. 12/29/16 08:40 Fungal Culture Resulted Fluid Pleural Fluid Pending 12/30/16 19:30 Aerobic Blood Culture - Preliminary Resulted Blood Peripheral NO GROWTH IN 1 DAY 12/30/16 19:30 Anaerobic Blood Culture - Preliminary Resulted Blood Peripheral NO GROWTH IN 1 DAY 12/30/16 19:36 Aerobic Blood Culture - Preliminary Resulted Blood Peripheral NO GROWTH IN 1 DAY 12/30/16 19:36 Anaerobic Blood Culture - Preliminary Resulted Blood Peripheral NO GROWTH IN 1 DAY PHYSICAL EXAMINATION GENERAL: alert and oriented x3. HEAD, EARS, EYES, NOSE AND THROAT: No icterus. Oropharynx - moist mucosa without lesions. NECK: Supple without adenopathy. No swelling. CHEST: Pacemaker in the left upper chest is intact and has no erythema. Well healing sternal incision. HEART: Regular rate and rhythm with distant S1 and S2. No audible murmurs. LUNGS: Decreased breath sounds. ABDOMEN: Obese, soft, no tenderness appreciated. EXTREMITIES: No clubbing or cyanosis or edema. NEUROLOGIC: No focal findings. PSYCHIATRIC: Calm and is cooperative. IMPRESSION 1. MRSA bacteremia. Recent mitral and aortic valve replacement. Questionable prior recent infective endocarditis. However, adequate information not available to me at this time. Ritesh Burks report no blood cultures. 2. Status post permanent pacemaker implantation. 3. Leukocytosis. WBC normal. 4. Status post drainage of pleural effusion. Culture is negative. RECOMMENDATIONS 1. Continue Vancomycin. Pharmacy is dosing. 2. Follow repeat blood cultures. 3. Monitor the patient's clinical status and temperature. Saurabh Mike MD January 03, 2017 13:38
--- NOTE | 2017-01-03 17:47 | HHI.PR ---
Subjective Remarks Deferred entry, patient seen at 12:20 PM fu acute respiratory failure, history of infective endocarditis, aortic and mitral valve tissue replacement, status post pace maker insertion, MRSA bacteremia Patient states that he feels depressed States shortness of breath is much improved As per RN who is at bedside Objective Vitals Vital Signs Date Time Temp Pulse Resp B/P Pulse Ox O2 Delivery O2 Flow Rate FiO2 01/03/17 14:00 87 01/03/17 13:00 86 01/03/17 12:00 85 01/03/17 12:00 97.8 85 22 123/68 99 01/03/17 10:00 96 01/03/17 09:00 100 01/03/17 08:00 98.2 92 20 137/77 99 01/03/17 08:00 92 01/03/17 07:31 100 Nasal Cannula 2.00 01/03/17 06:00 83 01/03/17 04:00 80 01/03/17 04:00 98.2 80 128/73 100 01/03/17 03:44 100 30 01/03/17 03:00 81 124/79 100 01/03/17 02:00 77 01/03/17 02:00 78 116/72 100 01/03/17 02:00 78 01/03/17 01:45 78 01/03/17 01:30 77 01/03/17 01:15 76 01/03/17 01:00 76 01/03/17 01:00 76 01/03/17 01:00 76 111/67 99 01/03/17 00:45 77 01/03/17 00:30 77 01/03/17 00:15 76 01/03/17 00:00 98.4 77 116/61 99 01/03/17 00:00 77 116/61 99 01/03/17 00:00 77 01/03/17 00:00 77 01/03/17 00:00 77 01/02/17 22:00 85 01/02/17 22:00 99 30 01/02/17 20:00 96 01/02/17 20:00 98.2 96 118/68 98 01/02/17 19:56 100 Nasal Cannula 2.00 01/02/17 18:00 95 I/O 01/02/17 01/02/17 01/02/17 01/03/17 01/03/17 5/22/17 06:59 14:59 22:59 06:59 14:59 22:59 Intake Total 100 ml 720 ml 240 ml 0 ml 600 ml Output Total 350 ml 600 ml 650 ml 650 ml Balance -250 ml 120 ml 240 ml 0 ml -50 ml -650 ml Intake Oral 100 ml 720 ml 240 ml 0 ml 600 ml IV Total 0 ml 0 ml Output Urine Total 350 ml 600 ml 650 ml 650 ml # Voids 2 2 # Bowel Movements 1 0 0 0 Result Diagram: 01/03/1723 01/03/17522 Imaging Last Impressions Chest X-Ray 01/03/17 0000 Signed Impressions: Service Date/Time: Tuesday, January 03, 2017 10:53 - CONCLUSION: Probable CHF Hal Burton MD Reviewed personally by me Objective Remarks GENERAL: This is a well-nourished, well-developed obese patient, in no apparent distress. Awake and alert. SKIN: No rashes, ecchymoses or lesions. Cool and dry. HEAD: Atraumatic. Normocephalic. No temporal or scalp tenderness. EYES: Pupils equal round and reactive. Extraocular motions intact. No scleral icterus. No injection or drainage. ENT: Nose without bleeding, purulent drainage or septal hematoma. Throat without erythema, tonsillar hypertrophy or exudate. Uvula midline. Airway patent. NECK: Trachea midline. No JVD or lymphadenopathy. Supple, nontender, no meningeal signs. CARDIOVASCULAR: Regular rate and rhythm without murmurs, gallops, or rubs. RESPIRATORY: Clear to auscultation. Breath sounds equal bilaterally but decreased. No wheezes, rales, or rhonchi. GASTROINTESTINAL: Protruberant abdomen, soft, non-tender, nondistended. No hepato-splenomegaly, or palpable masses. No guarding. MUSCULOSKELETAL: Extremities without clubbing, cyanosis, or edema. No joint tenderness, effusion, or edema noted. No calf tenderness. NEUROLOGICAL: Awake and alert. Able to move all extremities. No focal neurologic deficit appreciated. Normal speech Medications and IVs Current Medications Medications (Trade) Dose Ordered Sig/Bladimir Route Start Time Stop Time Status Last Admin (NS Flush) 2 ml UNSCH PRN IV FLUSH 01/02/17 01:45 (NS Flush) 2 ml BID IV FLUSH 01/02/17 09:00 01/03/17 09:24 (Tylenol) 650 mg Q4H PRN PO 01/02/17 01:45 (Zofran Inj) 4 mg Q6H PRN IVP 01/02/17 01:45 (Senokot) 17.2 mg Q12H PRN PO 01/02/17 01:45 (Heparin Inj) 5,000 units Q8H SQ 01/02/17 06:00 01/03/17 14:42 (Narcan Inj) 0.4 mg UNSCH PRN IV 01/02/17 01:45 Miscellaneous Information 1 Q361D XX 01/02/17 01:45 (Chlorhexidine 2% Cloth) 3 pack Taper DAILY@04 TOP 01/02/17 04:00 12/29/17 03:59 01/02/17 04:00 (Chlorhexidine 2% Cloth) 3 pack UNSCH PRN TOP 01/02/17 01:45 (Levemir Inj) 40 units HS SQ 01/02/17 21:00 01/02/17 21:00 (Lasix) 40 mg TID PO 01/02/17 09:00 01/03/17 16:50 (KCl) 40 meq Q12HR PO 01/02/17 09:00 01/03/17 09:22 (SEROquel) 25 mg HS PO 01/02/17 21:00 01/02/17 21:05 (Colace) 100 mg BID PO 01/02/17 09:00 01/03/17 09:21 (Pepcid) 20 mg BID PO 01/02/17 09:00 01/03/17 09:22 (Lopressor) 25 mg Q12HR PO 01/02/17 09:00 01/03/17 09:22 Ferrous Sulfate 325 mg 325 mg BID@,17 PO 01/02/17 12:00 01/03/17 16:50 (Vancomycin Consult Pharmacy) 0 ml @ 0 mls/hr UNSCH OTHER 01/02/17 07:00 (Mucinex Er) 1,200 mg BID PO 01/02/17 09:00 01/03/17 09:22 (Vitamin C) 500 mg BID PO 01/02/17 09:00 01/03/17 09:22 (D50w (Vial) Inj) 50 ml UNSCH PRN IV 01/02/17 07:00 (Glucagon Inj) 1 mg UNSCH PRN OTHER 01/02/17 07:00 (Xanax) 0.5 mg Q8H PRN PO 01/02/17 14:00 01/02/17 17:13 ([place] 10-325 Mg) 1 tab Q4H PRN PO 01/02/17 15:00 01/03/17 16:50 (NovoLOG INJ) 5 units TIDAC SQ 01/02/17 17:00 01/03/17 16:50 Urinary Catheter: No Vascular Central Line Catheter: No A/P Assessment and Plan 56 yo with morbid obesity, h/o RUSSELL on home CPAP, HTN, DM and recent infective endocarditis s/p aortic and mitral valve replacements, MRSA bacteremia on IV Vancomycin and left sided thoracentesis for pleural effusion who is being transferred from [facility] to [facility] for suspected CO2 narcosis and acute hypercapnic respiratory failure. Acute hypercapnic respiratory failure in morbidly obese patient with history of RUSSELL - possibly secondary to cardiac asthma - patient does not appear to be in any distress at this time - ABG this am shows pH 7.42, pCO2 51, pO2 90 - O2 sats 98% on 3L - Continue nightly BiPAP - sp 125 mg IV Solumedrol History of infective endocarditis Status post aortic and mitral valve tissue replacement PPM insertion MRSA bacteremia H/O left pleural effusion s/p thoracentesis 12/29/16 with recent CXR showing mild to moderate left sided effusion but deemed to small for repeat IR procedure - Continue on IV vancomycin - Continue diuresis with IV Lasix - Duonebs ordered Diabetes mellitus insulin-dependent - On Humulin at home - Levemir 40 units subcutaneous daily at bedtime, insulin sliding scale - Monitor blood glucose, will adjust to prandial insulin - Monitor for hypoglycemia HTN, controlled - Resume antihypertensive meds - Monitor BP trend Anemia, normocytic normochromic - iron studies indicative of GENO, on po supplementation - recent hemoccult negative - appears stable - Trend CBC Anxiety, depression - Continue with Xanax when necessary Vtach -as reported by RN patient had 3 minute of sustained V tach - Cardiology consulted. Monitor on telemetry. Patient with PPM. DVT prop heparin Sherman Greenberg MD January 03, 2017 17:47
--- NOTE | 2017-01-03 19:37 | PD.CARD.PN ---
Subjective Subjective Remarks Feeling better. No chest pain, no dyspnea at rest. Objective Vital Signs / I&O Vital Signs Date Time Temp Pulse Resp B/P Pulse Ox O2 Delivery O2 Flow Rate FiO2 01/03/17 18:00 95 01/03/17 16:00 90 01/03/17 16:00 98.4 90 24 118/61 99 01/03/17 14:00 87 01/03/17 13:00 86 01/03/17 12:00 85 01/03/17 12:00 97.8 85 22 123/68 99 01/03/17 10:00 96 01/03/17 09:00 100 01/03/17 08:00 98.2 92 20 137/77 99 01/03/17 08:00 92 01/03/17 07:31 100 Nasal Cannula 2.00 01/03/17 06:00 83 01/03/17 04:00 80 01/03/17 04:00 98.2 80 128/73 100 01/03/17 03:44 100 30 01/03/17 03:00 81 124/79 100 01/03/17 02:00 77 01/03/17 02:00 78 116/72 100 01/03/17 02:00 78 01/03/17 01:45 78 01/03/17 01:30 77 01/03/17 01:15 76 01/03/17 01:00 76 01/03/17 01:00 76 01/03/17 01:00 76 111/67 99 01/03/17 00:45 77 01/03/17 00:30 77 01/03/17 00:15 76 01/03/17 00:00 98.4 77 116/61 99 01/03/17 00:00 77 116/61 99 01/03/17 00:00 77 01/03/17 00:00 77 01/03/17 00:00 77 01/02/17 22:00 85 01/02/17 22:00 99 30 01/02/17 20:00 96 01/02/17 20:00 98.2 96 118/68 98 01/02/17 19:56 100 Nasal Cannula 2.00 I/O 01/02/17 01/02/17 01/02/17 01/03/17 01/03/17 01/03/17 07:00 15:00 23:00 07:00 15:00 23:00 Intake Total 100 ml 720 ml 240 ml 0 ml 600 ml Output Total 350 ml 600 ml 650 ml 650 ml Balance -250 ml 120 ml 240 ml 0 ml -50 ml -650 ml Intake Oral 100 ml 720 ml 240 ml 0 ml 600 ml IV Total 0 ml 0 ml Output Urine Total 350 ml 600 ml 650 ml 650 ml # Voids 2 2 # Bowel Movements 1 0 0 0 Physical Exam GENERAL: obese patient, in no apparent distress. Awake and alert. SKIN: No rashes, ecchymoses or lesions. Cool and dry. HEAD: Atraumatic. Normocephalic. No temporal or scalp tenderness. EYES: Pupils equal round and reactive. Extraocular motions intact. No scleral icterus. No injection or drainage. ENT: Nose without bleeding,Airway patent. NECK: Trachea midline. No JVD or lymphadenopathy. Supple, nontender, CARDIOVASCULAR: Regular rate and rhythm without murmurs, gallops, or rubs. RESPIRATORY: Clear but diminished to auscultation. Breath sounds equal bilaterally. No wheezes, rales, or rhonchi. GASTROINTESTINAL: Protruberant abdomen, soft, non-tender, nondistended. No hepato-splenomegaly, or palpable masses. No guarding. MUSCULOSKELETAL: No edema. No calf tenderness. NEUROLOGICAL: Awake and alert. Able to move all extremities. No focal neurologic deficit appreciated. Normal speech Laboratory Laboratory Tests Test 01/03/17 05:23 White Blood Count 8.4 TH/MM3 Red Blood Count 2.96 MIL/MM3 Hemoglobin 7.8 GM/DL Hematocrit 25.2 % Mean Corpuscular Volume 85.0 FL Mean Corpuscular Hemoglobin 26.4 PG Mean Corpuscular Hemoglobin 31.1 % Concent Red Cell Distribution Width 16.9 % Platelet Count 272 TH/MM3 Mean Platelet Volume 7.5 FL Neutrophils (%) (Auto) 58.8 % Lymphocytes (%) (Auto) 31.7 % Monocytes (%) (Auto) 8.0 % Eosinophils (%) (Auto) 0.6 % Basophils (%) (Auto) 0.9 % Neutrophils # (Auto) 4.9 TH/MM3 Lymphocytes # (Auto) 2.7 TH/MM3 Monocytes # (Auto) 0.7 TH/MM3 Eosinophils # (Auto) 0.1 TH/MM3 Basophils # (Auto) 0.1 TH/MM3 CBC Comment AUTO DIFF Differential Comment AUTO DIFF CONFIRMED Platelet Estimate NORMAL Platelet Morphology Comment NORMAL Sodium Level 139 MEQ/L Potassium Level 4.5 MEQ/L Chloride Level 96 MEQ/L Carbon Dioxide Level 32.5 MEQ/L Anion Gap 11 MEQ/L Blood Urea Nitrogen 31 MG/DL Creatinine 0.87 MG/DL Estimat Glomerular Filtration 90 ML/MIN Rate Random Glucose 123 MG/DL Calcium Level 8.7 MG/DL Total Bilirubin 0.3 MG/DL Aspartate Amino Transf 32 U/L (AST/SGOT) Alanine Aminotransferase 20 U/L (ALT/SGPT) Alkaline Phosphatase 147 U/L Total Protein 7.9 GM/DL Albumin 2.1 GM/DL Random Vancomycin Level 10.6 COMMENT Assessment and Plan Problem List: (1) S/P aortic valve and mitral valve replacement (2) Impaired mobility and activities of daily living (3) Hx of respiratory failure (4) Sternal wound dehiscence (5) RUSSELL (obstructive sleep apnea) (6) DM (diabetes mellitus) (7) Hypertension (8) Infective endocarditis (9) Cao esophagus Assessment and Plan 1. Acute hypercapnic respiratory failure in morbidly obese patient with history of RUSSELL. 2. History of infective endocarditis, Status post aortic and mitral valve tissue replacement. Stable 3 PPM insertion for SSS. Stable 4. MRSA bacteremia. ON IV abx. No clinical sign suggestive of recurrent endocarditis. Consider repeat Echo if necessary. 5. H/O left pleural effusion s/p thoracentesis 12/29/16 with recent CXR showing mild to moderate left sided effusion but deemed to small for repeat IR procedure. Continue diuresis with IV Lasix 6.Diabetes mellitus insulin-dependent 7. HTN, controlled, Resume antihypertensive meds 8. Anemia, normocytic normochromic ,stable 9. Anxiety, depression,Continue with Xanax when necessary OK to be discharged to rehab from cardiology standpoint. Follow up with me in 2- 4 weeks. Will sign off for now. Thanks. Wing Kimber Duke MD January 03, 2017 19:37
[2017-01-03] MEDS: ALPRAZolam 0.5 MG TAB PO PRN (19:40)
[2017-01-03] MEDS: QUEtiapine FUMARATE 25 MG TAB PO SCH (19:46)
[2017-01-03] MEDS: INSULIN DETEMIR 100 UNITS/ML VIAL SQ SCH (19:51)
[2017-01-04] VITALS (25 sets, daily range): BP systolic 113–157; BP diastolic 66–85; PULSE 78–100; RESP 18–21; TEMP 98.2–98.9; O2SAT 97–100
[2017-01-04] MEDS: ALPRAZolam 0.5 MG TAB PO PRN ×2 (03:18→14:01)
[2017-01-04] MEDS: ACETAMINOPHEN/HYDROcodone 325 MG/10 MG TAB PO PRN ×3 (03:18→19:57)
[2017-01-04] MEDS: CHLORHEXIDINE GLUCONATE 2 % 1 PACK (2 CLOTHS) TOP SCH (04:00)
[2017-01-04] MEDS: HEPARIN SODIUM - SQ 10,000 UNITS/ML VIAL SQ SCH ×3 (06:39→22:42)
[2017-01-04] MEDS: INSULIN ASPART SUPPLEMENTAL SCALE SQ SCH ×4 (07:00→20:02)
[2017-01-04] MEDS: RESP: ALBUTEROL 2.5 MG/IPRATROPIUM 0.5 MG NEB (SCH) NEB ×4 (07:34→19:06)
[2017-01-04] MEDS: INSULIN ASPART 1,000 UNITS/10 ML VIAL SQ SCH ×3 (08:00→17:00)
[2017-01-04] MEDS: SODIUM CHLORIDE 0.9% FLUSH 10 ML FLUSH IV FLUSH SCH ×2 (09:00→21:00)
[2017-01-04] MEDS: DOCUSATE SODIUM 100 MG CAP PO SCH ×2 (09:16→19:57)
[2017-01-04] MEDS: ASCORBIC ACID 500 MG TAB PO SCH ×2 (09:16→19:57)
[2017-01-04] MEDS: FUROSEMIDE 40 MG TAB PO SCH ×3 (09:16→17:08)
[2017-01-04] MEDS: METOPROLOL TARTRATE 25 MG TAB PO SCH ×2 (09:16→19:58)
[2017-01-04] MEDS: guaiFENesin E.R. 600 MG TAB PO SCH ×2 (09:16→19:58)
[2017-01-04] MEDS: FAMOTIDINE 20 MG TAB PO SCH ×2 (09:16→19:58)
[2017-01-04] MEDS: POTASSIUM CHLORIDE 20 MEQ CONTROLLED RELEASE TAB PO SCH ×2 (09:17→19:58)
--- NOTE | 2017-01-04 09:59 | PD.PN.STU ---
Subjective Remarks fu acute respiratory failure, history of infective endocarditis, aortic and mitral valve tissue replacement, status post pace maker insertion, MRSA bacteremia pt reports work of breathing improving had episode of asymptomatic v tach yesterday and cleared by cardiology to f/u outpatient minimal belly pain, reports not having a BM in 3 days pt had episode of anxiety at 3am, reports waking up and not being able to hear anything besides the CPAP machine, says he, "thought he was the only human alive in the world" he called 911 who got in touch with the nursing station and were able to reassure him says he still feels anxious Objective Vitals GENERAL: This is a well-nourished, well-developed, morbidly obese patient, in no apparent distress. Awake and alert. SKIN: No rashes, ecchymoses or lesions. Cool and dry. HEAD: Atraumatic. Normocephalic. No temporal or scalp tenderness. EYES: Pupils equal round and reactive. Extraocular motions intact. No scleral icterus. No injection or drainage. ENT: Nose without bleeding, purulent drainage or septal hematoma. Throat without erythema, tonsillar hypertrophy or exudate. Uvula midline. Airway patent. NECK: Trachea midline. No JVD or lymphadenopathy. Supple, nontender, no meningeal signs. CARDIOVASCULAR: Regular rate and rhythm without murmurs, gallops, or rubs. RESPIRATORY: Clear to auscultation. Breath sounds equal bilaterally but decreased. No wheezes, rales, or rhonchi. GASTROINTESTINAL: Protuberant abdomen, soft, non-tender, nondistended. No hepato -splenomegaly, or palpable masses. No guarding. MUSCULOSKELETAL: Extremities without clubbing, cyanosis, or edema. No joint tenderness, effusion, or edema noted. No calf tenderness. NEUROLOGICAL: Awake and alert. Able to move all extremities. No focal neurologic deficit appreciated. Normal speech Vital Signs Date Time Temp Pulse Resp B/P Pulse Ox O2 Delivery O2 Flow Rate FiO2 01/04/17 07:34 99 Nasal Cannula 2.00 01/04/17 06:00 78 01/04/17 05:02 97 2.00 01/04/17 04:05 98 30 01/04/17 04:00 83 01/04/17 04:00 98.2 83 20 113/68 99 01/04/17 02:00 79 01/04/17 01:51 99 30 5/23/17 01:45 79 01/04/17 01:30 79 01/04/17 01:15 79 01/04/17 01:00 79 01/04/17 01:00 79 01/04/17 00:45 78 01/04/17 00:30 78 01/04/17 00:15 80 01/04/17 00:00 80 01/04/17 00:00 95 01/04/17 00:00 98.4 80 117/66 99 01/04/17 00:00 80 01/03/17 23:11 98 30 01/03/17 22:00 96 01/03/17 20:23 98 Nasal Cannula 2.00 01/03/17 20:00 93 01/03/17 20:00 98.1 93 20 122/65 98 01/03/17 18:00 95 01/03/17 16:00 90 01/03/17 16:00 98.4 90 24 118/61 99 01/03/17 14:00 87 01/03/17 13:00 86 01/03/17 12:00 85 01/03/17 12:00 97.8 85 22 123/68 99 01/03/17 10:00 96 I/O 01/03/17 01/03/17 01/03/17 01/04/17 01/04/17 01/04/17 07:00 15:00 23:00 07:00 15:00 23:00 Intake Total 0 ml 600 ml 240 ml 0 ml Output Total 650 ml 650 ml Balance 0 ml -50 ml -410 ml 0 ml Intake Oral 0 ml 600 ml 240 ml 0 ml Output Urine Total 650 ml 650 ml # Voids 2 2 2 # Bowel Movements 0 0 0 Result Diagram: 01/03/17 0523 01/04/17 0458 A/P Assessment and Plan Acute hypercapnic respiratory failure in morbidly obese patient with history of RUSSELL - possibly secondary to cardiac asthma - patient does not appear to be in any distress at this time - O2 sats 99% on 2L - Continue nightly BiPAP - taper Solumedrol as his work of breathing and oxygenation seem improved History of infective endocarditis - Status post aortic and mitral valve tissue replacement - PPM insertion - MRSA bacteremia - Continue on IV vancomycin - Continue diuresis with IV Lasix Constipation - on docusate - add miralax Diabetes mellitus insulin-dependent - On Humulin at home - Levemir 40 units subcutaneous daily at bedtime, insulin sliding scale - Monitor blood glucose, will adjust to prandial insulin - Monitor for hypoglycemia HTN, controlled - Resume antihypertensive meds - Monitor BP trend Anemia, normocytic normochromic - iron studies indicative of GENO, on po supplementation - recent hemoccult negative - appears stable - Trend CBC Anxiety, depression - Continue with Xanax when necessary - psych consult Vtach - clear by cardiology who will f/u with pt outpatient - monitor on telemetry Justin Hernandez January 04, 2017 09:59 Sherman Greenberg MD January 06, 2017 11:01
[2017-01-04] MEDS ORDERED: POLYETHYLENE GLYCOL 17 GM PKG PO ONE (10:45)
[2017-01-04] MEDS: FERROUS SULFATE 325 MG (65 MG ELEMENTAL IRON) TAB PO SCH ×2 (12:47→17:08)
[2017-01-04] MEDS: VANCOMYCIN INJ 1,500 MG in SODIUM CHLORID 0.9% 500 ML INJ 500 ML IV SCH (12:53)
--- NOTE | 2017-01-04 14:45 | HHI.PR ---
Subjective Remarks Deferred entry, patient seen earlier today at 10:30 AM Patient states that last night he woke up and thought that he was taking only person on earth, tried calling RN, however since there was no immediate response then called 911 after which a few minutes that was a nurse. He states that he felt very anxious and "the emotion was there". He also elicits he had some sharp chest pain which he says he always has but was more severe yesterday The patient states feels better today, however is requesting to see a psychiatrist. Denies visual or auditory hallucinations Denies fevers or chills, vital signs stable Satting 100% on 2 L nasal cannula. Objective Vitals Vital Signs Date Time Temp Pulse Resp B/P Pulse Ox O2 Delivery O2 Flow Rate FiO2 01/04/17 12:00 86 01/04/17 12:00 98.9 86 18 134/78 100 01/04/17 10:27 14 01/04/17 10:00 98 01/04/17 08:00 98.2 98 20 121/85 100 01/04/17 08:00 98 01/04/17 07:34 99 Nasal Cannula 2.00 01/04/17 06:00 78 01/04/17 05:02 97 2.00 01/04/17 04:05 98 30 01/04/17 04:00 83 01/04/17 04:00 98.2 83 20 113/68 99 01/04/17 02:00 79 01/04/17 01:51 99 30 01/04/17 01:45 79 01/04/17 01:30 79 01/04/17 01:15 79 01/04/17 01:00 79 01/04/17 01:00 79 01/04/17 00:45 78 01/04/17 00:30 78 01/04/17 00:15 80 01/04/17 00:00 80 01/04/17 00:00 95 01/04/17 00:00 98.4 80 117/66 99 01/04/17 00:00 80 01/03/17 23:11 98 30 01/03/17 22:00 96 01/03/17 20:23 98 Nasal Cannula 2.00 01/03/17 20:00 93 01/03/17 20:00 98.1 93 20 122/65 98 01/03/17 18:00 95 01/03/17 16:00 90 01/03/17 16:00 98.4 90 24 118/61 99 I/O 01/03/17 01/03/17 01/03/17 01/04/17 01/04/17 01/04/17 06:59 14:59 22:59 06:59 14:59 22:59 Intake Total 0 ml 600 ml 240 ml 0 ml Output Total 650 ml 650 ml Balance 0 ml -50 ml -410 ml 0 ml Intake Oral 0 ml 600 ml 240 ml 0 ml Output Urine Total 650 ml 650 ml # Voids 2 2 2 # Bowel Movements 0 0 0 Result Diagram: 01/03/17 0523 01/04/17 0458 Imaging Last Impressions Chest X-Ray 01/03/17 0000 Signed Impressions: Service Date/Time: Tuesday, January 03, 2017 10:53 - CONCLUSION: Probable CHF Hal Burton MD Objective Remarks GENERAL: This is a well-nourished, well-developed obese patient, in no apparent distress. Awake and alert. SKIN: No rashes, ecchymoses or lesions. Cool and dry. HEAD: Atraumatic. Normocephalic. No temporal or scalp tenderness. EYES: Pupils equal round and reactive. Extraocular motions intact. No scleral icterus. No injection or drainage. ENT: Nose without bleeding, purulent drainage or septal hematoma. Throat without erythema, tonsillar hypertrophy or exudate. Uvula midline. Airway patent. NECK: Trachea midline. No JVD or lymphadenopathy. Supple, nontender, no meningeal signs. CARDIOVASCULAR: Regular rate and rhythm without murmurs, gallops, or rubs. RESPIRATORY: Clear to auscultation. Breath sounds equal bilaterally but decreased. No wheezes, rales, or rhonchi. GASTROINTESTINAL: Protruberant abdomen, soft, non-tender, nondistended. No hepato-splenomegaly, or palpable masses. No guarding. MUSCULOSKELETAL: Extremities without clubbing, cyanosis, or edema. No joint tenderness, effusion, or edema noted. No calf tenderness. NEUROLOGICAL: Awake and alert. Able to move all extremities. No focal neurologic deficit appreciated. Normal speech Medications and IVs Current Medications Medications (Trade) Dose Ordered Sig/Bladimir Route Start Time Stop Time Status Last Admin (NS Flush) 2 ml UNSCH PRN IV FLUSH 01/02/17 01:45 (NS Flush) 2 ml BID IV FLUSH 01/02/17 09:00 01/04/17 09:00 (Tylenol) 650 mg Q4H PRN PO 01/02/17 01:45 (Zofran Inj) 4 mg Q6H PRN IVP 01/02/17 01:45 (Senokot) 17.2 mg Q12H PRN PO 01/02/17 01:45 (Heparin Inj) 5,000 units Q8H SQ 01/02/17 06:00 01/04/17 06:39 (Narcan Inj) 0.4 mg UNSCH PRN IV 01/02/17 01:45 Miscellaneous Information 1 Q361D XX 01/02/17 01:45 (Chlorhexidine 2% Cloth) 3 pack Taper DAILY@04 TOP 01/02/17 04:00 12/29/17 03:59 01/02/17 04:00 (Chlorhexidine 2% Cloth) 3 pack UNSCH PRN TOP 01/02/17 01:45 (Levemir Inj) 40 units HS SQ 01/02/17 21:00 01/03/17 19:51 (Lasix) 40 mg TID PO 01/02/17 09:00 01/04/17 12:47 (KCl) 40 meq Q12HR PO 01/02/17 09:00 01/04/17 09:17 (SEROquel) 25 mg HS PO 01/02/17 21:00 01/03/17 19:46 (Colace) 100 mg BID PO 01/02/17 09:00 01/04/17 09:16 (Pepcid) 20 mg BID PO 01/02/17 09:00 01/04/17 09:16 (Lopressor) 25 mg Q12HR PO 01/02/17 09:00 01/04/17 09:16 Ferrous Sulfate 325 mg 325 mg BID@ PO 01/02/17 12:00 01/04/17 12:47 (Vancomycin Consult Pharmacy) 0 ml @ 0 mls/hr UNSCH OTHER 01/02/17 07:00 (Mucinex Er) 1,200 mg BID PO 01/02/17 09:00 01/04/17 09:16 (Vitamin C) 500 mg BID PO 01/02/17 09:00 01/04/17 09:16 (D50w (Vial) Inj) 50 ml UNSCH PRN IV 01/02/17 07:00 (Glucagon Inj) 1 mg UNSCH PRN OTHER 01/02/17 07:00 (Xanax) 0.5 mg Q8H PRN PO 01/02/17 14:00 01/04/17 14:01 ([place] 10-325 Mg) 1 tab Q4H PRN PO 01/02/17 15:00 01/04/17 09:15 Insulin Aspart 5 units 5 units TIDAC SQ 01/02/17 17:00 01/04/17 12:00 (Vancomycin Inj/ NS 500 ml Inj) 515 ml @ 250 mls/hr Q24H IV 01/04/17 13:00 01/04/17 12:53 Miscellaneous Information SPECIFIC LAB TO BE DRAWN:VANCOMYCIN TROUGH DATE TO... ONCE ONCE .XX 01/06/17 12:45 01/06/17 12:46 Urinary Catheter: No Vascular Central Line Catheter: No A/P Assessment and Plan 56 yo with morbid obesity, h/o RUSSELL on home CPAP, HTN, DM and recent infective endocarditis s/p aortic and mitral valve replacements, MRSA bacteremia on IV Vancomycin and left sided thoracentesis for pleural effusion who is being transferred from [facility] to [facility] for suspected CO2 narcosis and acute hypercapnic respiratory failure. Acute hypercapnic respiratory failure in morbidly obese patient with history of RUSSELL - possibly secondary to cardiac asthma due to acute on chronic diastolic chf exacerbation, recent echo on 12/26 showed ef 55 to 60%. - patient does not appear to be in any distress at this time - ABG showed pH 7.42, pCO2 51, pO2 90 - Patient sating 100% on 2 liters - Continue nightly BiPAP - sp 125 mg IV Solumedrol History of infective endocarditis Status post aortic and mitral valve tissue replacement PPM insertion MRSA bacteremia H/O left pleural effusion s/p thoracentesis 12/29/16 with recent CXR showing mild to moderate left sided effusion but deemed to small for repeat IR procedure - Continue on IV vancomycin - Continue diuresis with IV Lasix - Duonebs ordered Diabetes mellitus insulin-dependent - Blood sugars unstable above 200. - Continue Levemir 40 units subcutaneous daily at bedtime, insulin sliding scale - Increase prandial insulin NovoLog from 5-10 units 3 times a day before meals. - Monitor blood glucose. - Monitor for hypoglycemia HTN, controlled -Continue antihypertensive medications -Blood pressure stable -The patient currently on Toprol tartrate 25 minutes by mouth every 12 hours. Anemia, normocytic normochromic - iron studies indicative of GENO, on po supplementation - recent hemoccult negative - appears stable - Trend CBC Anxiety, depression - Continue with Xanax when necessary -Consult psychiatry. Vtach -as reported by RN patient had 3 minute of sustained V tach - Cardiology consulted. Monitor on telemetry. Patient with PPM. DVT prop heparin Discharge Planning Ok to transfer to medical floor. Dc pending psych consultation. Sherman Greenberg MD January 04, 2017 14:45
--- NOTE | 2017-01-04 15:13 | HHI.IDPN ---
Note Infectious Disease Note Transferred to [facility] for hypercarbic respiratory failure. On O2 via nasal canula. Afebrile. Feels okay. Notes he had anxiety attack this am. Repeat blood cultures negative x 5 days. Nasal MRSA positive. Patient was transferred to rehab facility after cardiac surgery. The patient initially was found to have mitral and aortic valve stenosis and required mitral and aortic valve replacement. PAST MEDICAL HISTORY 1. Hypertension. 2. Hyperlipidemia. 3. Diabetes mellitus, insulin dependent. 4. Gastroesophageal reflux disease. 5. Cao's esophagus. 6. Neuropathy. 7. Gout. 8. Bipolar disorder. 9. Obstructive sleep apnea. 10. Right knee replacement. 11. Umbilical hernia repair. 12. Tonsillectomy. 13. Cataract lens replacement. 14. Surgery for glaucoma. ALLERGIES PENICILLIN. ANTIBIOTICS: Vancomycin. OBJECTIVE: Vital Signs Date Time Temp Pulse Resp B/P Pulse Ox O2 Delivery O2 Flow Rate FiO2 01/04/17 12:00 86 01/04/17 12:00 98.9 86 18 134/78 100 01/04/17 10:27 14 01/04/17 10:00 98 01/04/17 08:00 98.2 98 20 121/85 100 01/04/17 08:00 98 01/04/17 07:34 99 Nasal Cannula 2.00 01/04/17 06:00 78 01/04/17 05:02 97 2.00 01/04/17 04:05 98 30 01/04/17 04:00 83 01/04/17 04:00 98.2 83 20 113/68 99 01/04/17 02:00 79 01/04/17 01:51 99 30 01/04/17 01:45 79 01/04/17 01:30 79 01/04/17 01:15 79 01/04/17 01:00 79 01/04/17 01:00 79 01/04/17 00:45 78 01/04/17 00:30 78 01/04/17 00:15 80 01/04/17 00:00 80 01/04/17 00:00 95 01/04/17 00:00 98.4 80 117/66 99 01/04/17 00:00 80 01/03/17 23:11 98 30 01/03/17 22:00 96 01/03/17 20:23 98 Nasal Cannula 2.00 01/03/17 20:00 93 01/03/17 20:00 98.1 93 20 122/65 98 01/03/17 18:00 95 01/03/17 16:00 90 01/03/17 16:00 98.4 90 24 118/61 99 01/03/17 01/03/17 01/04/17 15:00 23:00 07:00 Intake Total 600 ml 240 ml 0 ml Output Total 650 ml 650 ml Balance -50 ml -410 ml 0 ml Intake Oral 600 ml 240 ml 0 ml Output Urine Total 650 ml 650 ml # Voids 2 2 # Bowel Movements 0 0 Laboratory Tests Test 01/03/17 05:23 White Blood Count 8.4 TH/MM3 Red Blood Count 2.96 MIL/MM3 Hemoglobin 7.8 GM/DL Hematocrit 25.2 % Mean Corpuscular Volume 85.0 FL Mean Corpuscular Hemoglobin 26.4 PG Mean Corpuscular Hemoglobin 31.1 % Concent Red Cell Distribution Width 16.9 % Platelet Count 272 TH/MM3 Mean Platelet Volume 7.5 FL Neutrophils (%) (Auto) 58.8 % Lymphocytes (%) (Auto) 31.7 % Monocytes (%) (Auto) 8.0 % Eosinophils (%) (Auto) 0.6 % Basophils (%) (Auto) 0.9 % Neutrophils # (Auto) 4.9 TH/MM3 Lymphocytes # (Auto) 2.7 TH/MM3 Monocytes # (Auto) 0.7 TH/MM3 Eosinophils # (Auto) 0.1 TH/MM3 Basophils # (Auto) 0.1 TH/MM3 CBC Comment AUTO DIFF Differential Comment AUTO DIFF CONFIRMED Platelet Estimate NORMAL Platelet Morphology Comment NORMAL Laboratory Tests Test 01/03/17 01/04/17 05:23 04:58 Sodium Level 139 MEQ/L Potassium Level 4.5 MEQ/L Chloride Level 96 MEQ/L Carbon Dioxide Level 32.5 MEQ/L Anion Gap 11 MEQ/L Blood Urea Nitrogen 31 MG/DL Creatinine 0.87 MG/DL 0.93 MG/DL Estimat Glomerular Filtration 90 ML/MIN 83 ML/MIN Rate Random Glucose 123 MG/DL Calcium Level 8.7 MG/DL Total Bilirubin 0.3 MG/DL Aspartate Amino Transf 32 U/L (AST/SGOT) Alanine Aminotransferase 20 U/L (ALT/SGPT) Alkaline Phosphatase 147 U/L Total Protein 7.9 GM/DL Albumin 2.1 GM/DL Microbiology Date/Time Procedure Status Source Growth 12/28/16 19:24 Aerobic Blood Culture - Preliminary Resulted Blood Other NO GROWTH IN 3 DAYS 12/28/16 19:24 Anaerobic Blood Culture - Final Resulted Blood Other QNS - SEE AEROBE REPORT 12/28/16 22:26 Aerobic Blood Culture - Preliminary Resulted Blood Other S. Aureus Mrsa 12/28/16 22:26 Anaerobic Blood Culture - Final Resulted Blood Other QNS - SEE AEROBE REPORT 12/29/16 08:40 Gram Stain - Final Resulted Fluid Pleural Fluid 12/29/16 08:40 Body Fluid Culture - Preliminary Resulted Fluid Pleural Fluid NO GROWTH IN 48 HOURS. 12/29/16 08:40 Acid Fast Stain - Final Resulted Fluid Pleural Fluid NO ACID FAST BACILLI SEEN 12/29/16 08:40 Mycobacterial Culture Resulted Fluid Pleural Fluid Pending 12/29/16 08:40 Fungal Smear - Final Resulted Fluid Pleural Fluid NO FUNGAL ELEMENTS SEEN. 12/29/16 08:40 Fungal Culture Resulted Fluid Pleural Fluid Pending 12/30/16 19:30 Aerobic Blood Culture - Preliminary Resulted Blood Peripheral NO GROWTH IN 1 DAY 12/30/16 19:30 Anaerobic Blood Culture - Preliminary Resulted Blood Peripheral NO GROWTH IN 1 DAY 12/30/16 19:36 Aerobic Blood Culture - Preliminary Resulted Blood Peripheral NO GROWTH IN 1 DAY 12/30/16 19:36 Anaerobic Blood Culture - Preliminary Resulted Blood Peripheral NO GROWTH IN 1 DAY PHYSICAL EXAMINATION GENERAL: Alert and oriented x3. HEENT: No icterus. Oropharynx - moist mucosa without lesions. NECK: Supple without adenopathy. No swelling. CHEST: Pacemaker in the left upper chest - intact. HEART: Regular rate and rhythm with distant S1 and S2. No audible murmurs. LUNGS: Decreased breath sounds. ABDOMEN: Obese, soft, no tenderness appreciated. EXTREMITIES: No clubbing or cyanosis or edema. NEUROLOGIC: No focal findings. PSYCHIATRIC: Calm and is cooperative. IMPRESSION 1. MRSA bacteremia 12/28. Recent mitral and aortic valve replacement. Recent infective endocarditis. Patient had positive blood culture with Strep salivarius in 2 sets of blood cultures on 10/29/17. 2. Status post permanent pacemaker implantation. 3. Leukocytosis. WBC normal. 4. Status post drainage of pleural effusion. Culture is negative. RECOMMENDATIONS 1. Continue Vancomycin until 01/28/17. 2. PIC line. 3. IV antibiotic written for transfer. Patient is being considered for transfer to [facility]. Follow up with ID physician at [facility]. Discussed with Dr. Day and case management. Saurabh Mike MD January 04, 2017 15:13
--- NOTE | 2017-01-04 15:20 | HHI.FF ---
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 [] May leave port accessed during therapy. [] May leave peripheral site accessed for duration of therapy. [x] If patient has SOB or respiratory distress, check oxygen saturation. If less than 90% or clinical signs of respiratory distress, administer oxygen at 2 L/min. via nasal cannula and notify physician. [x] Anaphylaxis/Reaction orders: * Stop infusion. * Keep IV line open with saline flush. * Notify physician. * Monitor vital signs every 15 minutes until symptoms resolve. * Check Oxygen saturation; Oxygen at 2 L/min. via nasal cannula if less than 90% or clinical signs of respiratory distress. * Administer diphenhydramine (Benadryl) 25 mg IV STAT, (unless patient has received as pre-med). May repeat once, if necessary. * Solu-Cortef 250 mg IVP over 30-60 seconds, use 100 mg vials for each dissolution. * Epinephrine (1mg/1 ml) 0.3 mg subcutaneously or IVP now with any signs of respiratory distress. * Check with physician for new additional pre-med orders if patient is re- challenged or re-treated. [x] May remove PICC line when treatment complete, after confirming with Physician. [x] If the patient is admitted to the hospital, the ED, or transferred via [facility] , complete transfer form including medication reconciliation order sheet. Laboratory Tests Weekly Labs: BMP, CBC w/diff, Vancomycin Trough Dontfraid,Saurabh F MD January 04, 2017 15:20
[2017-01-04 16:24] LABS: FREE T4 1.45 NG/DL (0.76-1.46)
[2017-01-04] MEDS: QUEtiapine FUMARATE 25 MG TAB PO SCH (19:58)
[2017-01-04] MEDS: INSULIN DETEMIR 100 UNITS/ML VIAL SQ SCH (20:01)
[2017-01-05] VITALS (10 sets, daily range): BP systolic 116–154; BP diastolic 59–77; PULSE 68–103; RESP 18–20; TEMP 97.5–98.6; O2SAT 93–99
[2017-01-05] MEDS: CHLORHEXIDINE GLUCONATE 2 % 1 PACK (2 CLOTHS) TOP SCH (04:00)
[2017-01-05] MEDS: INSULIN ASPART SUPPLEMENTAL SCALE SQ SCH ×4 (05:35→21:56)
[2017-01-05] MEDS: HEPARIN SODIUM - SQ 10,000 UNITS/ML VIAL SQ SCH ×3 (05:35→21:48)
[2017-01-05] MEDS: ACETAMINOPHEN/HYDROcodone 325 MG/10 MG TAB PO PRN ×2 (05:49→21:48)
[2017-01-05] MEDS: RESP: ALBUTEROL 2.5 MG/IPRATROPIUM 0.5 MG NEB (SCH) NEB ×4 (08:38→19:13)
[2017-01-05] MEDS: SODIUM CHLORIDE 0.9% FLUSH 10 ML FLUSH IV FLUSH SCH ×2 (09:00→21:56)
--- NOTE | 2017-01-05 09:56 | PD.PN.STU ---
Subjective Remarks fu acute respiratory failure, history of infective endocarditis, aortic and mitral valve tissue replacement, status post pace maker insertion, MRSA bacteremia pt reports work of breathing improving vascular access unable to put in pick line and will try again had a BM this morning pt had another episode of anxiety last night but was able to call nurses - states that he wishes to - still awaiting psych consult chest pain improving to 3/10 Objective Vitals GENERAL: This is a well-nourished, well-developed obese patient, in no apparent distress. Awake and alert. SKIN: No rashes, ecchymoses or lesions. Cool and dry. HEAD: Atraumatic. Normocephalic. No temporal or scalp tenderness. EYES: Pupils equal round and reactive. Extraocular motions intact. No scleral icterus. No injection or drainage. ENT: Nose without bleeding, purulent drainage or septal hematoma. Throat without erythema, tonsillar hypertrophy or exudate. Uvula midline. Airway patent. NECK: Trachea midline. No JVD or lymphadenopathy. Supple, nontender, no meningeal signs. CARDIOVASCULAR: Regular rate and rhythm without murmurs, gallops, or rubs. RESPIRATORY: Clear to auscultation. Breath sounds equal bilaterally but decreased. No wheezes, rales, or rhonchi. GASTROINTESTINAL: Protruberant abdomen, soft, non-tender, nondistended. No hepato-splenomegaly, or palpable masses. No guarding. MUSCULOSKELETAL: Extremities without clubbing, cyanosis, or edema. No joint tenderness, effusion, or edema noted. No calf tenderness. NEUROLOGICAL: Awake and alert. Able to move all extremities. No focal neurologic deficit appreciated. Normal speech. Vital Signs Date Time Temp Pulse Resp B/P Pulse Ox O2 Delivery O2 Flow Rate FiO2 01/05/17 08:00 98.3 101 20 154/69 93 01/05/17 04:00 Nasal Cannula 2.00 01/05/17 04:00 98.5 68 18 116/59 97 01/05/17 00:00 97.5 91 20 122/77 99 01/05/17 00:00 Bi-Pap 30 01/04/17 22:14 97 30 01/04/17 20:00 98.6 100 21 157/67 97 01/04/17 20:00 Nasal Cannula 2.00 Humidified 01/04/17 19:53 100 01/04/17 19:06 100 High Flow Nasal Cannula 2.00 01/04/17 18:00 99 01/04/17 16:00 91 01/04/17 16:00 98.6 91 20 135/72 100 01/04/17 14:00 89 01/04/17 12:00 86 01/04/17 12:00 98.9 86 18 134/78 100 01/04/17 10:27 14 01/04/17 10:00 98 I/O 01/04/17 01/04/17 01/04/17 01/05/17 01/05/17 01/05/17 07:00 15:00 23:00 07:00 15:00 23:00 Intake Total 0 ml 960 ml 1020 ml 480 ml Output Total 985 ml 550 ml 250 ml Balance 0 ml -25 ml 470 ml 230 ml Intake Oral 0 ml 960 ml 480 ml 480 ml IV Total 540 ml Output Urine Total 985 ml 550 ml 250 ml # Voids 2 4 2 # Bowel Movements 0 1 1 Result Diagram: 01/03/17 0523 01/04/17 0458 A/P Assessment and Plan Acute hypercapnic respiratory failure in morbidly obese patient with history of RUSSELL - possibly secondary to cardiac asthma - patient does not appear to be in any distress at this time - O2 sats 99% on 2L - Continue nightly BiPAP - taper Solumedrol as his work of breathing and oxygenation seem improved History of infective endocarditis - Status post aortic and mitral valve tissue replacement - PPM insertion - MRSA bacteremia - Continue on IV vancomycin - Continue diuresis with IV Lasix Constipation - resolved Diabetes mellitus insulin-dependent - On Humulin at home - Levemir 40 units subcutaneous daily at bedtime, insulin sliding scale - Monitor blood glucose, will adjust to prandial insulin - Monitor for hypoglycemia HTN, controlled - Resume antihypertensive meds - Monitor BP trend Anemia, normocytic normochromic - iron studies indicative of GENO, on po supplementation - recent hemoccult negative - appears stable - Trend CBC Anxiety, depression - Continue with Xanax when necessary - psych consult Vtach - clear by cardiology who will f/u with pt outpatient - monitor on telemetry Justin Hernandez January 05, 2017 09:56 Sherman Greenberg MD January 06, 2017 11:07
[2017-01-05] MEDS: INSULIN ASPART 1,000 UNITS/10 ML VIAL SQ SCH ×3 (10:05→17:46)
[2017-01-05] MEDS: guaiFENesin E.R. 600 MG TAB PO SCH ×2 (10:06→21:49)
[2017-01-05] MEDS: FUROSEMIDE 40 MG TAB PO SCH ×3 (10:06→17:44)
[2017-01-05] MEDS: ASCORBIC ACID 500 MG TAB PO SCH ×2 (10:07→21:49)
[2017-01-05] MEDS: DOCUSATE SODIUM 100 MG CAP PO SCH ×2 (10:07→21:49)
[2017-01-05] MEDS: POTASSIUM CHLORIDE 20 MEQ CONTROLLED RELEASE TAB PO SCH ×2 (10:07→21:49)
[2017-01-05] MEDS: METOPROLOL TARTRATE 25 MG TAB PO SCH ×2 (10:07→21:49)
[2017-01-05] MEDS: FAMOTIDINE 20 MG TAB PO SCH ×2 (10:07→21:48)
[2017-01-05 10:39] LABS: AUTOMATED NEUTROPHIL # 4.4 TH/MM3 (1.8-7.7); BASOPHIL # 0.1 TH/MM3 (0-0.2); BASOPHIL % 0.7 % (0.0-2.0); EOSINOPHIL # 0.2 TH/MM3 (0-0.4); EOSINOPHIL % 2.5 % (0.0-4.0); HEMATOCRIT 25.4 % (39.0-51.0); LYMPH % 25.4 % (9.0-44.0); LYMPHOCYTE # 1.8 TH/MM3 (1.0-4.8); MEAN CELL VOLUME 84.1 FL (80.0-100.0); MEAN CORPUSCULAR HEMOGLOBIN 27.3 PG (27.0-34.0); MEAN CORPUSCULAR HGB CONC 32.5 % (32.0-36.0); MONO % 8.2 % (0.0-8.0); NEUT % 63.2 % (16.0-70.0); PLATELET COUNT 282 TH/MM3 (150-450); RED BLOOD COUNT 3.02 MIL/MM3 (4.50-5.90); RED CELL DISTRIBUTION WIDTH 17.4 % (11.6-17.2)
[2017-01-05 10:44] LABS: HEMO FLAGS AUTO DIFF
[2017-01-05 11:11] LABS: ANION GAP 8 MEQ/L (5-15); AST (GOT) 38 U/L (15-37); BICARBONATE 33.6 MEQ/L (21.0-32.0); BLOOD UREA NITROGEN 22 MG/DL (7-18); CHLORIDE 97 MEQ/L (98-107); POTASSIUM 4.2 MEQ/L (3.5-5.1); SODIUM (NA) 139 MEQ/L (136-145)
[2017-01-05 11:26] LABS: ALKALINE PHOSPHATASE 140 U/L (45-117); ALT (GPT) 21 U/L (12-78); GLOMERULAR FILTRATION RATE 99 ML/MIN (>89); TOTAL BILIRUBIN ADULT 0.3 MG/DL (0.2-1.0)
[2017-01-05] MEDS: FERROUS SULFATE 325 MG (65 MG ELEMENTAL IRON) TAB PO SCH ×2 (12:23→17:44)
[2017-01-05] MEDS: VANCOMYCIN INJ 1,500 MG in SODIUM CHLORID 0.9% 500 ML INJ 500 ML IV SCH (12:23)
[2017-01-05 12:39] LABS: BANDS 3 % (0-6); BASOPHILS 1 % (0-2); EOSINOPHILS 3 % (0-4); MYELOCYTES 2 % (0-0); NEUTROPHIL # MANUAL DIFF 4.6 TH/MM3 (1.8-7.7); POLYS (SEG NEUTROPHILS) 61 % (16-70); WBC DIFF SAMPLE 100
[2017-01-05 12:41] LABS: PLATELET ESTIMATE SMEAR NORMAL (NORMAL); PLATELET MORPHOLOGY NORMAL (NORMAL); SCAN/DIFF FINAL DIFF MANUAL
[2017-01-05] MEDS ORDERED: SODIUM CHLORIDE 0.9% FLUSH 10 ML FLUSH IVF PRN ×2 (15:30)
--- NOTE | 2017-01-05 15:32 | PD.RAD ---
Radiology Post PICC Prog Note Pre Procedure Diagnosis: (1) Infective endocarditis (2) Sternal wound dehiscence Post Procedure Diagnosis: (1) Infective endocarditis (2) Sternal wound dehiscence Procedure Date: January 05, 2017 Supervising Radiologist Scott Mathur Proceduralist/Assist: Kaila Guthrie, RT(R)(), Lilian Page, RT(R)(CV), Agnes Oquendo, RT(R)() Device Side: Right [place]: 4 single lumen cm: 50 Catheter: Power PICC Plan of Activity Patient to Unit: Nursing Unit Patient Condition: Good PICC line can be used immediately Scott Mathur MD January 05, 2017 15:32
--- NOTE | 2017-01-05 15:57 | PD.CONS ---
Provisional Diagnosis Admission Date January 01, 2017 at 20:25 [place] I. Unspecified psychosis [place] II. Deferred [place] III. COPD, sepsis History of Present Illness Service Psychiatry Consult Requested By Primary Care Physician Unknown HPI The patient is a 56 y/o with morbid obesity, h/o RUSSELL on home CPAP, HTN, DM and recent infective endocarditis s/p aortic and mitral valve replacements, MRSA bacteremia on IV Vancomycin and left sided thoracentesis for pleural effusion who is being transferred from [facility] to [place] ICU for suspected CO2 narcosis and acute hypercapnic respiratory failure. Consulted to psychiatry due to new onset visual hallucinations and confusion. On psychiatric evaluation today patient is calm, cooperative, reports good mood, denies anxiety , but reports frequent episodes of visual hallucinations. Patient says that usually at night he sees people coming inside his room and tried to talk to him. Sometimes he is insightful about the nature and unreality of these perceptual disturbances. But sometimes is not and he becomes very afraid. He denies auditory hallucinations. Patient is fully oriented 3, no delirium present. Review of Systems Constitutional: DENIES: Diaphoretic episodes, Fatigue, Fever, Weight gain, Weight loss, Chills, Dizziness, Change in appetite, Night Sweats Ears, nose, mouth, throat: DENIES: Tinnitus, Hearing loss, Vertigo, Nasal discharge, Oral lesions, Throat pain, Hoarseness, Ear Pain, Running Nose, Epistaxis, Sinus Pain, Toothache, Odynophagia Respiratory: DENIES: Apneas, Cough, Snoring, Wheezing, Hemoptysis, Sputum production, Shortness of breath Genitourinary: DENIES: Sexual dysfunction, Urinary frequency, Urinary incontinence, Urgency, Hematuria, Dysuria, Nocturia, Penile Discharge, Testicular Pain, Testicular Swelling Musculoskeletal: DENIES: Joint pain, Muscle aches, Stiffness, Joint Swelling, Back pain, Neck pain Integumentary: DENIES: Abnormal pigmentation, Nail changes, Pruritus, Rash Hematologic/lymphatic: DENIES: Bruising, Lymphadenopathy Immunologic/allergic: DENIES: Eczema, Urticaria Neurologic: DENIES: Abnormal gait, Headache, Localized weakness, Paresthesias, Seizures, Speech Problems, Tremor, Poor Balance Psychiatric: COMPLAINS OF: Hallucinations, DENIES: Anxiety, Confusion, Mood changes, Depression, Agitation, Suicidal Ideation, Homicidal Ideation, Delusions Past Family Social History Coded Allergies: Penicillin (Verified Allergy, Severe, Anaphylaxis, 12/23/16) *MDRO Multi-Drug Resistant Organism (Verified Adverse Reaction, Unknown, MRSA, 12/31/16) MRSA (blood) - 12/28/16 Active Scripts Quetiapine 25 Mg [id number] Mg PO HS #30 TAB Prov:Sherman Greenberg MD 01/06/17 Fluoxetine (Pmdd) 10 Mg Cap10 Mg PO DAILY #30 CAP Prov:Sherman Greenberg MD 01/06/17 Alprazolam (Xanax)0.5 Mg Tab0.5 Mg PO Q8H PRN (ANXIETY) #30 TAB Prov:Sherman Greenberg MD 01/06/17 Alprazolam (Xanax)0.5 Mg Tab0.5 Mg PO Q6H PRN (anxiety) #30 TAB Prov:Rudy Boyce MD 01/01/[address] (Aspirin EC)81 Mg Tabdr81 Mg PO DAILY 30 Days Prov:Rudy Boyce MD 01/01/17 Famotidine 20 Mg Tab20 Mg PO BID 30 Days Prov:Rudy Boyce MD 01/01/17 Ferrous Sulfate 325 Mg Ayp685 Mg PO BID 30 Days Prov:Rudy Boyce MD 01/01/17 Furosemide 40 Mg Tab40 Mg PO TID 30 Days Prov:Rudy Boyce MD 01/01/17 Heparin Sodium (Porcine) (Heparin Sodium)10,000 Unit/Ml Inj5,000 Units SQ Q8HR 30 Days Prov:Rudy Boyce MD 01/01/17 Hydrocodone-Acetaminophen 10-325 mg Tab1 Tab PO Q4H PRN (Pain 1-10) #30 TAB Prov:Rudy Boyce MD 01/01/17 Insulin Aspart Inj (Novolog Inj)1,000 Unit/10 Ml Vial5 Units SQ TIDAC 30 Days Prov:Rudy Boyce MD 01/01/17 Insulin Detemir Inj (Levemir Inj)1,000 unit/ 10 ML Vial40 Units SQ HS 30 Days Prov:Rudy Boyce MD 01/01/17 Ipratropium-Albuterol Neb (Duoneb)0.5-2.5 Mg/3 Ml Neb1 Ampule NEB Q4HR WHILE AWAKE NEB 30 Days Prov:Rudy Boyce MD 01/01/17 Metoprolol Tartrate 25 Mg Tab25 Mg PO Q12HR 30 Days Prov:Rudy Boyce MD 01/01/17 Potassium Chloride Microencaps 20 Meq Tab40 Meq PO Q12HR 30 Days Prov:Rudy Boyce MD 01/01/17 Sennosides (Senna Lax)8.6 Mg Tab17.2 Mg PO DAILY 30 Days Prov:Rudy Boyce MD 01/01/17 Discontinued Scripts Vancomycin Inj 1,000 Mg Inj2,250 Mg IV Q12HR 1 Day Ref 0 Prov:Rudy Boyce MD 01/01/17 Quetiapine 25 Mg Tab25 Mg PO HS 30 Days Prov:Rudy Boyce MD 01/01/17 Current Medications Medications (Trade) Dose Ordered Sig/Bladimir Route Start Time Stop Time Status Last Admin (NS Flush) 2 ml UNSCH PRN IV FLUSH 01/02/17 01:45 (NS Flush) 2 ml BID IV FLUSH 01/02/17 09:00 01/05/17 09:00 (Tylenol) 650 mg Q4H PRN PO 01/02/17 01:45 (Zofran Inj) 4 mg Q6H PRN IVP 01/02/17 01:45 (Senokot) 17.2 mg Q12H PRN PO 01/02/17 01:45 (Heparin Inj) 5,000 units Q8H SQ 01/02/17 06:00 01/05/17 15:35 (Narcan Inj) 0.4 mg UNSCH PRN IV 01/02/17 01:45 Miscellaneous Information 1 Q361D XX 01/02/17 01:45 (Chlorhexidine 2% Cloth) 3 pack Taper DAILY@04 TOP 01/02/17 04:00 12/29/17 03:59 01/05/17 04:00 (Chlorhexidine 2% Cloth) 3 pack UNSCH PRN TOP 01/02/17 01:45 (Levemir Inj) 40 units HS SQ 01/02/17 21:00 01/04/17 20:01 (Lasix) 40 mg TID PO 01/02/17 09:00 01/05/17 12:23 (KCl) 40 meq Q12HR PO 01/02/17 09:00 01/05/17 10:07 (SEROquel) 25 mg HS PO 01/02/17 21:00 01/04/17 19:58 (Colace) 100 mg BID PO 01/02/17 09:00 01/05/17 10:07 (Pepcid) 20 mg BID PO 01/02/17 09:00 01/05/17 10:07 (Lopressor) 25 mg Q12HR PO 01/02/17 09:00 01/05/17 10:07 Ferrous Sulfate 325 mg 325 mg BID@ PO 01/02/17 12:00 01/05/17 12:23 (Vancomycin Consult Pharmacy) 0 ml @ 0 mls/hr UNSCH OTHER 01/02/17 07:00 (Mucinex Er) 1,200 mg BID PO 01/02/17 09:00 01/05/17 10:06 (Vitamin C) 500 mg BID PO 01/02/17 09:00 01/05/17 10:07 (D50w (Vial) Inj) 50 ml UNSCH PRN IV 01/02/17 07:00 (Glucagon Inj) 1 mg UNSCH PRN OTHER 01/02/17 07:00 (Xanax) 0.5 mg Q8H PRN PO 01/02/17 14:00 01/04/17 14:01 ([place] 10-325 Mg) 1 tab Q4H PRN PO 01/02/17 15:00 01/05/17 05:49 Insulin Aspart 5 units 5 units TIDAC SQ 01/02/17 17:00 01/05/17 12:22 (Vancomycin Inj/ NS 500 ml Inj) 515 ml @ 250 mls/hr Q24H IV 01/04/17 13:00 01/05/17 12:23 Miscellaneous Information SPECIFIC LAB TO BE DRAWN:VANCOMYCIN TROUGH DATE TO... ONCE ONCE .XX 01/06/17 12:45 01/06/17 12:46 (NS Flush) DAILY IVF 01/06/17 09:00 (Heparin Central Flush) DAILY IV FLUSH 01/06/17 09:00 (NS Flush) UNSCH PRN IVF 01/05/17 15:30 (Heparin Central Flush) UNSCH PRN IV FLUSH 01/05/17 15:30 (NS Flush) UNSCH PRN IVF 01/05/17 15:30 Physical Exam Vital Signs Vital Signs Date Time Temp Pulse Resp B/P Pulse Ox O2 Delivery O2 Flow Rate FiO2 01/05/17 12:06 97 Nasal Cannula 2.00 01/05/17 12:00 98.6 98 18 154/63 01/05/17 00:00 30 I/O 01/04/17 01/04/17 01/05/17 08:00 16:00 00:00 Intake Total 0 ml 960 ml 1020 ml Output Total 985 ml 550 ml Balance 0 ml -25 ml 470 ml Mental Status Examination Appearance Obese man, good hygiene, [facility], calm and cooperative Speech: Unremarkable Orientation: x3 Memory: Unremarkable Thought Process: Logical, Goal Directed, Linear Thought Content: Unremarkable Language Fluent and spontaneous Fund of Knowledge Adequate for level of education Hallucination Type: Visual Suicidal Ideation: No Previous Suicide Attempts: No Homicidal Ideation: No Previous Homicide Attempts: No Judgment: WNL Affect: Sad Mood: Sad Assessment & Plan Problem List: (1) Delirium due to another medical condition Assessment & Plan: On psychiatric evaluation today patient presents symptoms of mild to moderate depression and anxiety mostly secondary to current medical situation, length stressed of hospitalization. He denies suicidal and homicidal ideation, patient also reports frequent episodes of experiencing visual hallucinations at night and very vivid nightmares. Patient seems to be very distressed by these experiences. However he seems to be insightful about unreality nature of perceptual disturbances. My opinion is that this psychosis is suffering early related with delirium secondary to underlying medical conditions. He does not meet criteria for psychiatric hospitalization at this moment. We'll start Prozac 10 mg for depression, will increase Seroquel to 100 mg at bedtime to help the patient with hallucinations and to sleep. Extensive support, motivation psycho education provided. Consult appreciated. ICD Code: F05 Assessment & Plan Estimated LOS: Jose Handley MD January 05, 2017 15:57
--- NOTE | 2017-01-05 16:06 | RADRPT ---
EXAM DATE/TIME: 01/05/2017 16:03 [place] COMPARISON: No previous studies available for comparison. INDICATIONS : Patient is in need of placement of a PICC line for continued medication administration. MEDICAL HISTORY : History of HTN, DM, dyslipidemia, GERD, Cao's esophagus, bipolar disorder, endocarditis, bilatera l pleural effusions, acute respiratory failure, anemia. SURGICAL HISTORY : History of aortic and mitral valve tissue replacement, pacemaker placement, sternal wound dehiscence and debridement, tonsillectomy, lens replaceemnt, thoracentesis, hernia repair, right knee replacemen t. ENCOUNTER: Initial ACUITY: 1 week PAIN SCORE: 0/10 FLUORO TIME: 0.9 minutes IMAGE SERIES: 1 ACCESS: Right basilic vein MEDICATION(S): 1.) 200 units Heparin IV DEVICE(S): 1.) 4 [place] single lumen 50 cm Xcela Power PICC PROCEDURE : 1. Ultrasound guidance for venous catheterization. 2. Fluoroscopic guidance. 3. Ultrasound & fluoroscopic guided central venous Power PICC line placement. The risks, benefits and alternatives to the procedure were explained and verbal and written consent w as obtained. The site was prepped in sterile fashion. Full sterile technique was used, including ca p, mask, sterile gloves and gown and a large sterile sheet. Hand hygiene and 2% chlorhexidine prep w as utilized per protocol for cutaneous antisepsis with appropriate dry time for site. The skin and s ubcutaneous tissues were infiltrated with local anesthetic solution. Under direct ultrasound guidance, a suitable vein was accessed and a measuring guidewire was introduc ed and positioned in the central venous system. The ultrasound images depicting access guidance were saved and stored to PACS for permanent record. A Power Injectable PICC line was cut to prescribed length and introduced, positioned with tip at the cavoatrial junction level. The line was flushed and secured per protocol. CONCLUSION: 1. Uncomplicated central venous Power PICC line placement. 2. The PICC line can be used immediately. Scott Mathur MD on January 05, 2017 at 16:04 Board Certified Radiologist. This report was verified electronically.
--- NOTE | 2017-01-05 17:02 | HHI.PR ---
Subjective Remarks Deferred entry - patient seen at 13:40 PM Patient states that he again had a vivid dream last night denies cp/sob states feels very anxious about the future and his health denies fevers/chills no cough denies diarrhea vital signs stable Objective Vitals Vital Signs Date Time Temp Pulse Resp B/P Pulse Ox O2 Delivery O2 Flow Rate FiO2 01/05/17 16:34 97 Nasal Cannula 2.00 01/05/17 12:06 97 Nasal Cannula 2.00 01/05/17 12:00 98.6 98 18 154/63 97 01/05/17 08:09 96 01/05/17 08:00 Nasal Cannula 2.00 Humidified 01/05/17 08:00 98.3 101 20 154/69 93 01/05/17 04:00 Nasal Cannula 2.00 01/05/17 04:00 98.5 68 18 116/59 97 01/05/17 00:00 97.5 91 20 122/77 99 01/05/17 00:00 Bi-Pap 30 01/04/17 22:14 97 30 01/04/17 20:00 98.6 100 21 157/67 97 01/04/17 20:00 Nasal Cannula 2.00 Humidified 01/04/17 19:53 100 01/04/17 19:06 100 High Flow Nasal Cannula 2.00 01/04/17 18:00 99 I/O 01/04/17 01/04/17 01/04/17 01/05/17 01/05/17 01/05/17 07:00 15:00 23:00 07:00 15:00 23:00 Intake Total 0 ml 960 ml 1020 ml 480 ml Output Total 985 ml 550 ml 250 ml Balance 0 ml -25 ml 470 ml 230 ml Intake Oral 0 ml 960 ml 480 ml 480 ml IV Total 540 ml Output Urine Total 985 ml 550 ml 250 ml # Voids 2 4 2 # Bowel Movements 0 1 1 Result Diagram: 01/05/17 1006 01/05/17 1006 Objective Remarks GENERAL: This is a well-nourished, well-developed obese patient, in no apparent distress. Awake and alert. SKIN: No rashes, ecchymoses or lesions. Cool and dry. HEAD: Atraumatic. Normocephalic. No temporal or scalp tenderness. EYES: Pupils equal round and reactive. Extraocular motions intact. No scleral icterus. No injection or drainage. ENT: Nose without bleeding, purulent drainage or septal hematoma. Throat without erythema, tonsillar hypertrophy or exudate. Uvula midline. Airway patent. NECK: Trachea midline. No JVD or lymphadenopathy. Supple, nontender, no meningeal signs. CARDIOVASCULAR: Regular rate and rhythm without murmurs, gallops, or rubs. RESPIRATORY: Clear to auscultation. Breath sounds equal bilaterally but decreased. No wheezes, rales, or rhonchi. GASTROINTESTINAL: Protruberant abdomen, soft, non-tender, nondistended. No hepato-splenomegaly, or palpable masses. No guarding. MUSCULOSKELETAL: Extremities without clubbing, cyanosis, or edema. No joint tenderness, effusion, or edema noted. No calf tenderness. NEUROLOGICAL: Awake and alert. Able to move all extremities. No focal neurologic deficit appreciated. Normal speech Medications and IVs Current Medications Medications (Trade) Dose Ordered Sig/Bladimir Route Start Time Stop Time Status Last Admin (NS Flush) 2 ml UNSCH PRN IV FLUSH 01/02/17 01:45 (NS Flush) 2 ml BID IV FLUSH 01/02/17 09:00 01/05/17 09:00 (Tylenol) 650 mg Q4H PRN PO 01/02/17 01:45 (Zofran Inj) 4 mg Q6H PRN IVP 01/02/17 01:45 (Senokot) 17.2 mg Q12H PRN PO 01/02/17 01:45 (Heparin Inj) 5,000 units Q8H SQ 01/02/17 06:00 01/05/17 15:35 (Narcan Inj) 0.4 mg UNSCH PRN IV 01/02/17 01:45 Miscellaneous Information 1 Q361D XX 01/02/17 01:45 (Chlorhexidine 2% Cloth) 3 pack Taper DAILY@04 TOP 01/02/17 04:00 12/29/17 03:59 01/05/17 04:00 (Chlorhexidine 2% Cloth) 3 pack UNSCH PRN TOP 01/02/17 01:45 (Levemir Inj) 40 units HS SQ 01/02/17 21:00 01/04/17 20:01 (Lasix) 40 mg TID PO 01/02/17 09:00 01/05/17 12:23 (KCl) 40 meq Q12HR PO 01/02/17 09:00 01/05/17 10:07 (Colace) 100 mg BID PO 01/02/17 09:00 01/05/17 10:07 (Pepcid) 20 mg BID PO 01/02/17 09:00 01/05/17 10:07 (Lopressor) 25 mg Q12HR PO 01/02/17 09:00 01/05/17 10:07 Ferrous Sulfate 325 mg 325 mg BID@, PO 01/02/17 12:00 01/05/17 12:23 (Vancomycin Consult Pharmacy) 0 ml @ 0 mls/hr UNSCH OTHER 01/02/17 07:00 (Mucinex Er) 1,200 mg BID PO 01/02/17 09:00 01/05/17 10:06 (Vitamin C) 500 mg BID PO 01/02/17 09:00 01/05/17 10:07 (D50w (Vial) Inj) 50 ml UNSCH PRN IV 01/02/17 07:00 (Glucagon Inj) 1 mg UNSCH PRN OTHER 01/02/17 07:00 (Xanax) 0.5 mg Q8H PRN PO 01/02/17 14:00 01/04/17 14:01 ([place] 10-325 Mg) 1 tab Q4H PRN PO 01/02/17 15:00 01/05/17 05:49 Insulin Aspart 5 units 5 units TIDAC SQ 01/02/17 17:00 01/05/17 12:22 (Vancomycin Inj/ NS 500 ml Inj) 515 ml @ 250 mls/hr Q24H IV 01/04/17 13:00 01/05/17 12:23 Miscellaneous Information SPECIFIC LAB TO BE DRAWN:VANCOMYCIN TROUGH DATE TO... ONCE ONCE .XX 01/06/17 12:45 01/06/17 12:46 (NS Flush) DAILY IVF 01/06/17 09:00 (Heparin Central Flush) DAILY IV FLUSH 01/06/17 09:00 (NS Flush) UNSCH PRN IVF 01/05/17 15:30 (Heparin Central Flush) UNSCH PRN IV FLUSH 01/05/17 15:30 (NS Flush) UNSCH PRN IVF 01/05/17 15:30 (SEROquel) 100 mg HS PO 01/05/17 21:00 (PROzac) 10 mg DAILY PO 01/05/17 16:00 A/P Assessment and Plan 56 yo with morbid obesity, h/o RUSSELL on home CPAP, HTN, DM and recent infective endocarditis s/p aortic and mitral valve replacements, MRSA bacteremia on IV Vancomycin and left sided thoracentesis for pleural effusion who is being transferred from [facility] to [facility] for suspected CO2 narcosis and acute hypercapnic respiratory failure. Acute hypercapnic respiratory failure in morbidly obese patient with history of RUSSELL - possibly secondary to cardiac asthma due to acute on chronic diastolic chf exacerbation, recent echo on 12/26 showed ef 55 to 60%. - patient does not appear to be in any distress at this time - ABG showed pH 7.42, pCO2 51, pO2 90 - Patient sating 100% on 2 liters - Continue nightly BiPAP - sp 125 mg IV Solumedrol History of infective endocarditis Status post aortic and mitral valve tissue replacement PPM insertion MRSA bacteremia H/O left pleural effusion s/p thoracentesis 12/29/16 with recent CXR showing mild to moderate left sided effusion but deemed to small for repeat IR procedure - Continue on IV vancomycin - Continue diuresis with IV Lasix - Duonebs ordered] -Vascular team could not insert PICC line. I will order an invasive radiology consult to place PICC line. Diabetes mellitus insulin-dependent - Blood sugars with better control - Continue Levemir 40 units subcutaneous daily at bedtime, insulin sliding scale - Continue prandialinsulin 10 units SQ TID. - Monitor blood glucose. - Monitor for hypoglycemia HTN, controlled -Continue antihypertensive medications -Blood pressure stable -The patient currently on Toprol tartrate 25 minutes by mouth every 12 hours. Anemia, normocytic normochromic - iron studies indicative of GENO, on po supplementation - recent hemoccult negative - appears stable - Trend CBC Anxiety, depression - Continue with Xanax when necessary - Appreciate psychiatry consultation. Psychiatry will start the patient on Prozac 10 mg for depression and would increase Seroquel 200 mg at bedtime to help patient with hallucinations and sleep. Vtach -as reported by RN patient had 3 minute of sustained V tach - Cardiology consulted. Monitor on telemetry. Patient with PPM. -No further events, continue to monitor on telemetry. DVT prop heparin Discharge Planning DC in a.m. after PICC line placement. Sherman Greenberg MD January 05, 2017 17:02
[2017-01-05] MEDS ORDERED: QUEtiapine FUMARATE 25 MG TAB PO SCH (21:00)
[2017-01-05] MEDS: FLUoxetine HCL 10 MG CAP PO SCH (21:47)
[2017-01-05] MEDS: INSULIN DETEMIR 100 UNITS/ML VIAL SQ SCH (21:55)
[2017-01-06] VITALS (8 sets, daily range): BP systolic 121–131; BP diastolic 69–75; PULSE 84–99; RESP 20–22; TEMP 97.7–98.7; O2SAT 96–99
[2017-01-06] MEDS: CHLORHEXIDINE GLUCONATE 2 % 1 PACK (2 CLOTHS) TOP SCH (04:00)
[2017-01-06] MEDS: HEPARIN SODIUM - SQ 10,000 UNITS/ML VIAL SQ SCH ×2 (05:53→14:35)
[2017-01-06] MEDS: INSULIN ASPART SUPPLEMENTAL SCALE SQ SCH ×3 (05:53→15:57)
[2017-01-06] MEDS: guaiFENesin E.R. 600 MG TAB PO SCH (08:34)
[2017-01-06] MEDS: ASCORBIC ACID 500 MG TAB PO SCH (08:34)
[2017-01-06] MEDS: FLUoxetine HCL 10 MG CAP PO SCH (08:35)
[2017-01-06] MEDS: FUROSEMIDE 40 MG TAB PO SCH ×2 (08:35→12:46)
[2017-01-06] MEDS: FAMOTIDINE 20 MG TAB PO SCH (08:35)
[2017-01-06] MEDS: POTASSIUM CHLORIDE 20 MEQ CONTROLLED RELEASE TAB PO SCH (08:36)
[2017-01-06] MEDS: DOCUSATE SODIUM 100 MG CAP PO SCH (08:36)
[2017-01-06] MEDS: METOPROLOL TARTRATE 25 MG TAB PO SCH (08:36)
[2017-01-06] MEDS: SODIUM CHLORIDE 0.9% FLUSH 10 ML FLUSH IV FLUSH SCH (08:38)
[2017-01-06] MEDS: INSULIN ASPART 1,000 UNITS/10 ML VIAL SQ SCH ×3 (08:46→15:58)
[2017-01-06] MEDS: RESP: ALBUTEROL 2.5 MG/IPRATROPIUM 0.5 MG NEB (SCH) NEB ×2 (09:00→12:26)
[2017-01-06] MEDS ORDERED: SODIUM CHLORIDE 0.9% FLUSH 10 ML FLUSH IVF SCH (09:00)
--- NOTE | 2017-01-06 09:37 | PD.PN.STU ---
Subjective Remarks slept well last night PICC line placed understands he is to go to rehab today denies SOB, CP, diarrhea vitals stable Objective Vitals GENERAL: This is a well-nourished, well-developed, morbidly obese patient, in no apparent distress. Awake and alert. SKIN: No rashes, ecchymoses or lesions. Cool and dry. HEAD: Atraumatic. Normocephalic. No temporal or scalp tenderness. EYES: Pupils equal round and reactive. Extraocular motions intact. No scleral icterus. No injection or drainage. ENT: Nose without bleeding, purulent drainage or septal hematoma. Throat without erythema, tonsillar hypertrophy or exudate. Uvula midline. Airway patent. NECK: Trachea midline. No JVD or lymphadenopathy. Supple, nontender, no meningeal signs. CARDIOVASCULAR: Regular rate and rhythm without murmurs, gallops, or rubs. RESPIRATORY: Clear to auscultation. Breath sounds equal bilaterally but decreased. No wheezes, rales, or rhonchi. GASTROINTESTINAL: Protuberant abdomen, soft, non-tender, nondistended. No hepato -splenomegaly, or palpable masses. No guarding. MUSCULOSKELETAL: Extremities without clubbing, cyanosis, or edema. No joint tenderness, effusion, or edema noted. No calf tenderness. Vital Signs Date Time Temp Pulse Resp B/P Pulse Ox O2 Delivery O2 Flow Rate FiO2 01/06/17 09:01 99 Nasal Cannula 3.00 01/06/17 08:00 98.7 99 20 131/69 98 01/06/17 04:31 97.9 94 22 130/70 99 01/06/17 04:00 Nasal Cannula 3.00 01/06/17 02:00 98 30 01/06/17 00:45 98.7 96 22 130/72 96 01/06/17 00:00 Bi-Pap 01/05/17 23:30 98 30 01/05/17 20:00 Nasal Cannula 3.00 01/05/17 20:00 98.2 103 19 133/77 97 01/05/17 20:00 101 01/05/17 16:34 97 Nasal Cannula 2.00 01/05/17 16:00 98.6 90 18 130/72 96 01/05/17 12:06 97 Nasal Cannula 2.00 01/05/17 12:00 98.6 98 18 154/63 97 I/O 01/05/17 01/05/17 01/05/17 01/06/17 01/06/17 01/06/17 07:00 15:00 23:00 07:00 15:00 23:00 Intake Total 480 ml 360 ml 1420 ml Output Total 250 ml 900 ml 1250 ml Balance 230 ml -540 ml 170 ml Intake Oral 480 ml 360 ml 1420 ml Output Urine Total 250 ml 900 ml 1250 ml # Voids 2 # Bowel Movements 0 3 Result Diagram: 01/05/17 1006 01/06/17 0740 A/P Assessment and Plan Acute hypercapnic respiratory failure in morbidly obese patient with history of RUSSELL - possibly secondary to cardiac asthma - patient does not appear to be in any distress at this time - O2 sats 99% on 2L - Continue nightly BiPAP History of infective endocarditis - Status post aortic and mitral valve tissue replacement - PPM insertion - MRSA bacteremia - Continue on IV vancomycin - PICC placement successful Constipation - resolved Diabetes mellitus insulin-dependent - On Humulin at home - Levemir 40 units subcutaneous daily at bedtime, insulin sliding scale - Monitor blood glucose, will adjust to prandial insulin - Monitor for hypoglycemia HTN, controlled - Resume antihypertensive meds - Monitor BP trend Anemia, normocytic normochromic - iron studies indicative of GENO, on po supplementation - recent hemoccult negative - appears stable - Trend CBC Anxiety, depression - Continue with Xanax/Seroquel Vtach - clear by cardiology who will f/u with pt outpatient - monitor on telemetry Justin Hernandez January 06, 2017 09:37 Sherman Greenberg MD January 06, 2017 11:08
[2017-01-06] MEDS ORDERED: ALPR.5 PO (11:17)
[2017-01-06] MEDS ORDERED: QUET1TAB7 PO (11:17)
[2017-01-06] MEDS ORDERED: FLUO10CA4 PO (11:17)
[2017-01-06] MEDS: FERROUS SULFATE 325 MG (65 MG ELEMENTAL IRON) TAB PO SCH (11:28)
--- NOTE | 2017-01-06 11:34 | HHI.DS ---
Discharge Summary Admission Date January 01, 2017 at 20:25 Discharge Date: January 06, 2017 Admitting Diagnosis (1) Acute hypercapnic respiratory failure ICD Code: J96.02 Diagnosis: Principal (2) Pleural effusion ICD Code: J90 Diagnosis: Principal (3) Acute on chronic diastolic heart failure ICD Code: I50.33 Diagnosis: Principal (4) RUSSELL (obstructive sleep apnea) ICD Code: G47.33 Diagnosis: Principal (5) Pacemaker ICD Code: Z95.0 Diagnosis: Principal (6) Morbid obesity with BMI of 70 and over, adult ICD Code: E66.01 Diagnosis: Principal (7) V-tach ICD Code: I47.2 Diagnosis: Principal (8) Hypertension ICD Code: I10 Diagnosis: Secondary (9) DM (diabetes mellitus) ICD Code: E11.9 Diagnosis: Secondary (10) S/P aortic valve and mitral valve replacement ICD Code: Z95.2 Diagnosis: Secondary (11) H/O aortic valve replacement ICD Code: Z95.2 Diagnosis: Secondary (12) H/O mitral valve replacement ICD Code: Z95.2 Diagnosis: Secondary (13) Euthyroid sick syndrome ICD Code: E07.81 Diagnosis: Principal Procedures none Brief History - From Admission Written by Mary Blackwood PA-C acting as scribe for Dr. Day on 01/02/17 at 14:07. Patient is 48-year-old male with past medical history significant for hypertension, dyslipidemia, insulin-dependent diabetes, GERD with a history of Cao's esophagus, bipolar disorder, morbid obesity and obstructive sleep apnea using a CPAP machine at home who was initially admitted to [facility] and found to have infective endocarditis that was treated with IV antibiotics as well as aortic and mitral valve tissue replacement that was performed by Dr. Felix on 11/11/16. Postoperative consultations included asystole and patient required permanent pacemaker implantation. Patient was intubated and was unable to be weaned from the ventilator and was initially sent [facility] [place] for vent weaning. Patient then returned to [facility] with a proximal sternal wound dehiscence and underwent sternal wound debridement as well as opening and drainage of pericardial fluid and a CT chest tube placement for bilateral pleural effusions. Patient was then readmitted to [facility] on 12/01/16 and was again able to be weaned successfully off of ventilator and placed on BiPAP at bedtime secondary to RUSSELL. Patient was then transferred to [place] on 12/23/16 for comprehensive rehabilitation and hospitalist services were consulted at that time medical management. While on the floor with rehabilitation, patient began refusing his BiPAP at night. Patient underwent a thoracentesis for left sided pleural effusion on 12/29/16 with exudative appearance of fluid analysis. On 01/01/17, patient was noted to be more confused with labored breathing. He was slightly tachycardiac. No fever or chills and patient was afebrile. Chest x-ray was obtained which revealed moderate left pleural effusion and left lower lobe consolidation versus atelectasis as well as cardiomegaly. Ultrasound guided thoracentesis was ordered but was deemed not necessary following CT results. ABG was ordered showing a pH of 7.34, PCO2 of 61 and PO2 of 86. Patient was placed on BiPAP without any significant improvement and repeat ABG. Settings were then increased with a repeat ABG showing reduction in CO2 however unable to keep patient in the rehabilitation unit due to increased BiPAP settings therefore patient was transferred to [place] ICU. CBC/BMP: 01/05/17 1006 01/06/17 0740 Significant Findings Laboratory Tests Test 01/04/17 01/05/17 04:58 10:06 Estimat Glomerular Filtration 83 ML/MIN (>89) Rate Thyroid Stimulating Hormone 4.620 uIU/ML 3rd Gen (0.358-3.740) Red Blood Count 3.02 MIL/MM3 (4.50-5.90) Hemoglobin 8.3 GM/DL (13.0-17.0) Hematocrit 25.4 % (39.0-51.0) Red Cell Distribution Width 17.4 % (11.6-17.2) Mean Platelet Volume 6.9 FL (7.0-11.0) Monocytes (%) (Auto) 8.2 % (0.0-8.0) Myelocytes 2 % (0-0) Chloride Level 97 MEQ/L (98-107) Carbon Dioxide Level 33.6 MEQ/L (21.0-32.0) Blood Urea Nitrogen 22 MG/DL (7-18) Random Glucose 146 MG/DL (74-106) Aspartate Amino Transf 38 U/L (15-37) (AST/SGOT) Alkaline Phosphatase 140 U/L (45-117) Total Protein 8.3 GM/DL (6.4-8.2) Albumin 2.3 GM/DL (3.4-5.0) Free Triiodothyronine (T3) 2.10 PG/ML pg/dL (2.18-3.98) Imaging Last Impressions PICC Line Insertion 01/05/17 0000 Signed Impressions: Service Date/Time: Thursday, January 05, 2017 16:03 - CONCLUSION: 1. Uncomplicated central venous Power PICC line placement. 2. The PICC line can be used immediately. Scott Mathur MD Chest X-Ray 01/03/17 0000 Signed Impressions: Service Date/Time: Tuesday, January 03, 2017 10:53 - CONCLUSION: Probable CHF Hal Burton MD PE at Discharge GENERAL: This is a well-nourished, well-developed obese patient, in no apparent distress. Awake and alert. SKIN: No rashes, ecchymoses or lesions. Cool and dry. HEAD: Atraumatic. Normocephalic. No temporal or scalp tenderness. EYES: Pupils equal round and reactive. Extraocular motions intact. No scleral icterus. No injection or drainage. ENT: Nose without bleeding, purulent drainage or septal hematoma. Throat without erythema, tonsillar hypertrophy or exudate. Uvula midline. Airway patent. NECK: Trachea midline. No JVD or lymphadenopathy. Supple, nontender, no meningeal signs. CARDIOVASCULAR: Regular rate and rhythm without murmurs, gallops, or rubs. RESPIRATORY: Clear to auscultation. Breath sounds equal bilaterally but decreased. No wheezes, rales, or rhonchi. GASTROINTESTINAL: Protruberant abdomen, soft, non-tender, nondistended. No hepato-splenomegaly, or palpable masses. No guarding. MUSCULOSKELETAL: Extremities without clubbing, cyanosis, or edema. No joint tenderness, effusion, or edema noted. No calf tenderness. NEUROLOGICAL: Awake and alert. Able to move all extremities. No focal neurologic deficit appreciated. Normal speech Pt update on day of discharge denies cp/sob. stable vital signs. States ready to go home. Hospital Course 56 yo with morbid obesity, h/o RUSSELL on home CPAP, HTN, DM and recent infective endocarditis s/p aortic and mitral valve replacements, MRSA bacteremia on IV Vancomycin and left sided thoracentesis for pleural effusion who is being transferred from [facility] to [place] ICU for suspected CO2 narcosis and acute hypercapnic respiratory failure. Acute hypercapnic respiratory failure in morbidly obese patient with history of RUSSELL - possibly secondary to cardiac asthma due to acute on chronic diastolic chf exacerbation, recent echo on 12/26 showed ef 55 to 60%. - ABG showed pH 7.42, pCO2 51, pO2 90 - Treated with BiPAP at night. - sp 125 mg IV Solumedrol History of infective endocarditis Status post aortic and mitral valve tissue replacement PPM insertion MRSA bacteremia H/O left pleural effusion s/p thoracentesis 12/29/16 with recent CXR showing mild to moderate left sided effusion but deemed to small for repeat IR procedure - Treated w IV vancomycin - Continue diuresis with IV Lasix - Duonebs ordered] -Vascular team could not insert PICC line. invasive radiology consult was placed for PICC line placement Diabetes mellitus insulin-dependent - Treated w Levemir 40 units subcutaneous daily at bedtime, insulin sliding scale - prandial insulin 10 units SQ TID. - Monitor blood glucose. - Monitor for hypoglycemia HTN, controlled -Blood pressure remained stable. -The patient on Metoprolol tartrate 25 minutes by mouth every 12 hours. Anemia, normocytic normochromic - iron studies indicative of GENO, on po supplementation - recent hemoccult negative - appears stable - Trend CBC Anxiety, depression - Continue with Xanax when necessary. Psych consulted. - Psychiatry started patient on Prozac 10 mg for depression and would increase Seroquel 200 mg at bedtime to help patient with hallucinations and sleep. Vtach -as reported by RN patient had 3 minute of sustained V tach - Cardiology consulted. Monitor on telemetry. Patient with PPM. -No further events, continue to monitor on telemetry. Cleared by cardiology. Abnormal TSH -Patient has elevated TSH but normal T4. Likely euthyroid sick syndrome due to acute severe illness. Pt Condition on Discharge: Stable Discharge Disposition: Discharge to SNF Discharge Time: > 30 minutes Discharge Instructions DIET: Follow Instructions for: Heart Healthy Diet, Diabetic Diet Activities you can perform: See Additionl Instruction Other Activity Instructions: OOB with assistance as tolerated Follow up Referrals: Cardiology Infectious Disease - 2-3 Days PCP Follow-up - 2 Weeks SNF/FPC/ with [facility] New Medications: Alprazolam (Xanax) 0.5 Mg Tab 0.5 MG PO Q8H PRN ANXIETY #30 TAB Fluoxetine (Pmdd) (Fluoxetine (Pmdd)) 10 Mg Cap 10 MG PO DAILY Depression Control #30 CAP Quetiapine (Quetiapine) 25 Mg Tab 100 MG PO HS Anxiety and/or Insomnia #30 TAB Continued Medications: Alprazolam (Xanax) 0.5 Mg Tab 0.5 MG PO Q6H PRN anxiety #[address] (Aspirin EC) 81 Mg Tabdr 81 MG PO DAILY Days 30 TAB Famotidine (Famotidine) 20 Mg Tab 20 MG PO BID Days 30 TAB Ferrous Sulfate (Ferrous Sulfate) 325 Mg Tab 325 MG PO BID Days 30 TAB Furosemide (Furosemide) 40 Mg Tab 40 MG PO TID Days 30 TAB Heparin Sodium (Porcine) (Heparin Sodium) 10,000 Unit/Ml Inj 5000 UNITS SQ Q8HR Days 30 INJECTION Hydrocodone-Acetaminophen (Hydrocodone-Acetaminophen) 10-325 mg Tab 1 TAB PO Q4H PRN Pain 1-10 #30 TAB Insulin Aspart Inj (Novolog Inj) 1,000 Unit/10 Ml Vial 5 UNITS SQ TIDAC Days 30 INJECTION Insulin Detemir Inj (Levemir Inj) 1,000 unit/ 10 ML Vial 40 UNITS SQ HS Days 30 INJECTION Ipratropium-Albuterol Neb (Duoneb) 0.5-2.5 Mg/3 Ml Neb 1 AMPULE NEB Q4HR WHILE AWAKE NEB Days 30 ML Metoprolol Tartrate (Metoprolol Tartrate) 25 Mg Tab 25 MG PO Q12HR Days 30 TAB Potassium Chloride Microencaps (Potassium Chloride Microencaps) 20 Meq Tab 40 MEQ PO Q12HR Days 30 TAB Sennosides (Senna Lax) 8.6 Mg Tab 17.2 MG PO DAILY Days 30 TAB Discontinued Medications: Quetiapine (Quetiapine) 25 Mg Tab 25 MG PO HS Days 30 TAB Vancomycin Inj (Vancomycin Inj) 1,000 Mg Inj 2250 MG IV Q12HR Infection Days 1 Ref 0 BAG Sherman Greenberg MD January 06, 2017 11:33
[2017-01-06] MEDS ORDERED: PHARMACY ORDERED LAB ONE (12:45)
[2017-01-06] MEDS: VANCOMYCIN INJ 1,500 MG in SODIUM CHLORID 0.9% 500 ML INJ 500 ML IV SCH (12:46)
[2017-01-06] MEDS: ACETAMINOPHEN/HYDROcodone 325 MG/10 MG TAB PO PRN (15:45)
[2017-01-06] MEDS: ALPRAZolam 0.5 MG TAB PO PRN (15:45)
== END 2017-01-06 17:05 | DRG 189 ==
LOC: HIMN 20:25 → UNDOADMIN 20:25 → HIMN 01-02 00:30 → N04A 01-04 18:39 → UNDODISIN 01-06 17:05
PROVIDERS: ADMIT Hospitalist; ATTEND Hospitalist
PROC: 02HV33Z Insertion of Infusion Device into Superior Vena Cava, Percutaneous Approach (ICD-10-PCS; principal; 2017-01-05)
PROC: B518ZZA Fluoroscopy of Superior Vena Cava, Guidance (ICD-10-PCS; 2017-01-05)
DX: J96.02 Acute respiratory failure with hypercapnia (principal); I47.2 Ventricular tachycardia; Z68.44 Body mass index [BMI] 60.0-69.9, adult; F05 Delirium due to known physiological condition; K22.70 Barrett's esophagus without dysplasia; E66.01 Morbid (severe) obesity due to excess calories; G47.33 Obstructive sleep apnea (adult) (pediatric); I10 Essential (primary) hypertension; E11.9 Type 2 diabetes mellitus without complications; D64.9 Anemia, unspecified; F32.9 Major depressive disorder, single episode, unspecified; F41.9 Anxiety disorder, unspecified; Z95.2 Presence of prosthetic heart valve; Z79.4 Long term (current) use of insulin; E78.5 Hyperlipidemia, unspecified; K21.9 Gastro-esophageal reflux disease without esophagitis; Z95.0 Presence of cardiac pacemaker; M10.9 Gout, unspecified; B95.62 Methicillin resistant Staphylococcus aureus infection as the cause of diseases classified elsewhere; K59.00 Constipation, unspecified
CPT/HCPCS: 36569; 36600; 71010; 76937; 77001; 80053; 80202; 82565; 82805; 82948; 83735; 84100; 84132; 84439; 84443; 84481; 85007; 85025; 85027; 87641; 90732; 94002; 94003; 94640; 94664; C1751; C1769; J1642; J1644; J1815; J3370; J7040